=== PATIENT | female | born 1930 | race Caucasian/White ===

== ENCOUNTER 2016-08-20 13:08 | Inpatient (IN) | payer OTHER ==
--- NOTE | 2016-08-20 13:46 | CPEKG ---
Heart Rate: 85 RR Interval: 706 QRSD Interval: 92 QT Interval: 396 QTC Interval: 471 QRS [place]: -24 T Wave [place]: -54 EKG Severity - ABNORMAL ECG - EKG Impression: ATRIAL FIBRILLATION, V-RATE 70-96 EKG Impression: BORDERLINE LEFT AXIS DEVIATION EKG Impression: NONSPECIFIC T ABNORMALITIES, DIFFUSE LEADS Electronically Signed By: Zeeshan Weiss 20-Aug-2016 16:41:10
[2016-08-20] MEDS ORDERED: NS 500 ML IV ONE (13:48)
[2016-08-20] MEDS ORDERED: ASPIRIN 81 MG CHEWABLE TAB PO ONE (13:48)
[2016-08-20 14:11] LABS: % IMMATURE GRANULYOCYTES 0.3 % (0.0-1.1); ABSOLUTE IMMATURE GRANULOCYTES 0.02 10^3/uL (0.00-0.10); ADD DIFF? NO; ADD MORPH? NO; ADD SCAN? NO; ATYPICAL LYMPHOCYTE FLAG 0 (0-99); FRAGMENT RBC FLAG 0 (0-99); HEMATOCRIT 42.2 % (38.0-47.0); LEFT SHIFT FLG 0 (0-99); LIPEMIA HEMOLYSIS FLAG 80 (0-99); MEAN CELL HEMOGLOBIN CONCENTR. 33.2 g/dL (32.4-36.7); MEAN CELL VOLUME 93.6 fL (81.5-99.8); MEAN PLATELET VOLUME 9.1 fL (8.7-11.7); PLATELET CLUMPS FLAG 30 (0-99); PLATELET COUNT 277 10^3/uL (150-400); RED BLOOD CELL COUNT 4.51 10^6/uL (4.18-5.33); RED CELL DISTRIBUTION WIDTH 13.4 % (11.5-15.2)
[2016-08-20 14:23] LABS: ANION GAP 13 mEq/L (8-16); CALCIUM 9.7 mg/dL (8.5-10.4); CARBON DIOXIDE 26 mEq/l (22-31); CHLORIDE 101 mEq/L (97-110); CREATININE 0.8 mg/dL (0.6-1.0); GLOMERULAR FILTRATION RATE > 60; GLUCOSE 89 mg/dL (70-100); POTASSIUM 4.2 mEq/L (3.5-5.2); SODIUM 140 mEq/L (134-144)
[2016-08-20 14:37] LABS: TROPONIN I < 0.012 ng/mL (0-0.034)
--- NOTE | 2016-08-20 14:48 | UCPHY ---
H & P Patient Type: Established Chief Complaint Nursing Narrative: weakness,depression,nausea,dizziness for 1 day Time Seen by Provider: 08/20/16 13:39 HPI/ROS: This patient has generalized weakness over the past 48 hours. She lives in assisted living and has not gotten out of bed for breakfast the last 2 mornings because she feels lightheaded and weak when she stands up. Today her daughter came over with a plan to bring her to lunch and the patient felt too lightheaded to stand without assist and used a walker to ambulate due to this intermittent lightheadedness. This is not like this patient at baseline he usually ambulates without assist. The patient has longstanding depression as well that persists but no significant change in the severity of her depression recently. She does have diminished appetite but that is a chronic problem for her. ROS: No fevers or chills. No other constitutional symptoms except the generalized weakness. HEENT: No headache. No nasal congestion or sore throat. Pulmonary: No dyspnea. No coughing. Cardiovascular: She denies chest pain. She has not noticed heart palpitations. She denies any new leg swelling or calf pain. GI: She has nausea today but no vomiting. Decreased appetite as above that is chronic. Normal bowel movements. : No urinary symptoms. 10 point ROS is otherwise negative. Source: Patient, Family (The patient's daughter is here with her and helps with history) - Personal History Current Tetanus Diphtheria and Acellular Pertussis (TDAP): Yes Tetanus Vaccine Date: unsure - Medical/Surgical History Hx Asthma: No Hx Chronic Respiratory Disease: No Hx Diabetes: No Hx Cardiac Disease: No Hx Renal Disease: No Hx Cirrhosis: No Hx Alcoholism: No Hx HIV/AIDS: No Hx Splenectomy or Spleen Trauma: No Other PMH: hypotension,dementa,afib - Family History Significant Family History: No pertinent family hx - Social History Smoking Status: Never smoked Alcohol Use: None Drug Use: None Additional Social History: Assisted living - Physical Exam Exam: Vital signs are in notable for intermittent pauses with the intermittent bradycardia down to the 30s. Otherwise normal vitals. Initial orthostatics vitals revealed a 18 beats per minute increased when she stands up. General Appearance: Pleasant elderly female Alert, no distress. Eyes: Pupils equal and round no pallor or injection. ENT, Mouth: Mucous membranes moist. Respiratory: There are no retractions, lungs are clear to auscultation. Cardiovascular: Irregularly irregular. No murmurs noted. No JVD. No peripheral edema. Gastrointestinal: Abdomen is soft and nontender, no masses, bowel sounds normal. Neurological: Alert with no focal deficits. Skin: Warm and dry, no rashes. Musculoskeletal: Neck is supple nontender. Extremities are symmetrical, full range of motion. Psychiatric: the patient admits depression. No suicidal ideation. She has a flat affect. DIFFERENTIAL DIAGNOSIS: After history and physical exam differential diagnosis was considered for coronary syndrome, symptomatic bradycardia, rule out metabolic disarray, Constitutional: Initial Vital Signs Temperature (C) 36.9 C 08/20/16 13:34 Heart Rate 86 08/20/16 13:34 Respiratory Rate 14 08/20/16 13:34 Blood Pressure 145/89 H 08/20/16 13:34 O2 Sat (%) 95 08/20/16 13:34 O2 Delivery Mode Room Air Allergies/Adverse Reactions: No Known Allergies Allergy (Verified 08/20/16 13:32) Home Medications: Medication Instructions Recorded Xarelto 01/12/16 Lexapro 08/20/16 Mapap 08/20/16 Medical Decision Making - Diagnostics EKG Interpretation: 12 lead EKG performed at 1:43 p.m. reveals atrial fibrillation at a rate of 85 Intervals: QRS of 92, QTC of 471 [place]: QRS of-24, T of-54 ST segments: T-wave inversion in AVF and in the lateral leads. No previous EKG for comparison. Overall assessment atrial fibrillation, cannot rule out inferolateral ischemia. ED Course/Re-evaluation: IV, monitor, borderline positive orthostatic findings, normal saline bolus, aspirin 324 On the monitor patient had significant pauses and [place] down to the 30s briefly. We placed pacer pads on the patient but did not have to initiate pacing as she quickly resumed a heart rate in the 50s to 70s. I spoke with Dr. Renny Membreno-hospitalist accepts the patient for transfer for symptomatic bradycardia. I spoke with Cristal mid-level practitioner with [facility]. They will consult on the case. Discussion: Pleasant elderly female here with a chronic atrial fibrillation new onset of symptomatic bradycardia of unclear etiology. Rule out cardiac ischemia or other. - Data Points Laboratory Results: Laboratory Results 08/20/16 14:00 08/20/16 14:00 08/20/16 08/20/16 14:00 14:00 WBC 7.89 10^3/uL 10^3/uL (3.80-9.50) RBC 4.51 10^6/uL 10^6/uL (4.18-5.33) Hgb 14.0 g/dL g/dL (12.6-16.3) Hct 42.2 % % (38.0-47.0) MCV 93.6 fL fL (81.5-99.8) MCH 31.0 pg pg (27.9-34.1) MCHC 33.2 g/dL g/dL (32.4-36.7) RDW 13.4 % % (11.5-15.2) Plt Count 277 10^3/uL 10^3/uL (150-400) MPV 9.1 fL fL (8.7-11.7) Neut % (Auto) 69.8 % % (39.3-74.2) Lymph % (Auto) 20.2 % % (15.0-45.0) [place] % (Auto) 7.1 % % (4.5-13.0) Eos % (Auto) 1.5 % % (0.6-7.6) Baso % (Auto) 1.1 % % (0.3-1.7) Nucleat RBC Rel Count 0.0 % % (0.0-0.2) Absolute Neuts (auto) 5.51 10^3/uL 10^3/uL (1.70-6.50) Absolute Lymphs (auto) 1.59 10^3/uL 10^3/uL (1.00-3.00) Absolute Monos (auto) 0.56 10^3/uL 10^3/uL (0.30-0.80) Absolute Eos (auto) 0.12 10^3/uL 10^3/uL (0.03-0.40) Absolute Basos (auto) 0.09 10^3/uL 10^3/uL (0.02-0.10) Absolute Nucleated RBC 0.00 10^3/uL 10^3/uL (0-0.01) Immature Gran % 0.3 % % (0.0-1.1) Immature Gran # 0.02 10^3/uL 10^3/uL (0.00-0.10) Sodium 140 mEq/L mEq/L (134-144) Potassium 4.2 mEq/L mEq/L (3.5-5.2) Chloride 101 mEq/L mEq/L (97-110) Carbon Dioxide 26 mEq/l mEq/l (22-31) Anion Gap 13 mEq/L mEq/L (8-16) BUN 16 mg/dL mg/dL (7-23) Creatinine 0.8 mg/dL mg/dL (0.6-1.0) Estimated GFR > 60 Glucose 89 mg/dL mg/dL (70-100) Calcium 9.7 mg/dL mg/dL (8.5-10.4) Troponin I < 0.012 ng/mL ng/mL (0-0.034) TSH Pending Medications Given: Discontinued Medications Aspirin (Aspirin) 324 mg PO EDNOW ONE Stop: 08/20/16 13:49 Last Admin: 08/20/16 14:31 Dose: 324 mg Sodium Chloride (Ns) 500 mls @ 0 mls/hr IV ONCE ONE PRN Reason: As Directed Stop: 08/20/16 13:49 Last Admin: 08/20/16 13:55 Dose: 500 mls Departure - Departure Disposition: Home, Routine, Self-Care Clinical Impression: Symptomatic bradycardia Atrial fibrillation Qualifiers: Atrial fibrillation type: chronic Qualified Code(s): I48.2 - Chronic atrial fibrillation Condition: Fair Referrals: PCP Not In,Dictionary [Medical Doctor] - As per Instructions - PQRS PQRS Measurement: 134: Depression screening and followup, PRIME MD-PHQ2 (12 years and older) Over the last 2 weeks, how often have you been bothered by any of the following problems? 1. Feeling down, depressed, or hopeless? 2. Little interest or pleasure in doing things? Patient answered yes to at least 1, referred to PCP for further evaluation. 130: Documentation of medications. Reviewed all patient medications, doses, route and frequency. 226: Do you smoke? [No.] 47: 65 and older: Advanced care planning. Patient designates surrogate decision maker as her daughter 51: 18 years old and older with diagnosis of COPD, spirometry performance. NA 52: 18 years old and older with COPD and symptoms of COPD or FEV1<60% predicted prescribed a B Agonist. NA
[2016-08-20 14:54] LABS: COLOR YELLOW; LEUKOCYTE ESTERASE,URINE NEGATIVE (NEGATIVE); NITRITE,URINE NEGATIVE (NEGATIVE); PH,URINE 6.5 (5.0-7.5)
--- NOTE | 2016-08-20 16:02 | PDGENHP ---
History and Physical History and Physical: HISTORY AND PHYSICAL CC: Nausea weakness lightheadedness HISTORY: This patient presents today to the urgent care in [place] complaining of nausea, lightheadedness and weakness.Patient does have dementia and is only able to give me very limited information. I am getting most of my history from her daughter and ferritin Dr. Weiss who saw her at urgent care Sounds like she spent most of the last 2 days in bed and has taken in very little orally.She has a house call who visits her and found her to be "not doing well and "today and called the patient's daughter who brought her to Urgent Care. The patient does admit that she has had poor appetite recently but she can't tell for how long. She denies any nausea, abdominal pain, odynophagia, vomiting, change in bowel function, fever symptoms, back pain. She has no urinary symptoms no shortness of breath. Daughter mentions that she notices the patient has been burping a lot more recently than usual. The daughter last saw the patient 3 days ago doing well at her assisted living apartment. Also the daughter mentions that the patient just started on Lexapro 10 days ago, and that the patient had a similar reaction but milder after being given a prescription for Celexa in December of 2015. at that time the patient improved after IV fluids. There is no significant history of digestive or gastrointestinal illness otherwise and no abdominal surgeries. ROS: A comprehensive 10 system review revealed no other significant findings but is felt to be very limited by the patient's dementia PAST MEDICAL HISTORY: Depression and anxiety Atrial fibrillation on Xarelto side effects with Celexa, but no medicine allergies per se Intention tremor FAMILY MEDICAL HISTORY: There are no significant medical illnesses in the family relevant to the patient 's current story Her father apparently had a severe intention tremor baking him unable to feed himself eventually SOCIAL HISTORY: she is single, but has family here including a daughter The patient's family here describes that the patient has been chronically depressed for many years, but has been more depressed since she moved from [place] to [place] 2 years ago. The patient's family has brought a most form that the patient signed about a year ago, which requests not resuscitate, but full therapies with some limits on artificial feedings. MEDICATIONS: The patients list has not yet been reconciled by our clinical pharmacist in the EMR. as mentioned above it is known that she did start Lexapro 10 mg about 10 days ago. PHYSICAL EXAMINATION: Vital Signs: normal blood pressure and pulse, however in the urgent care she did have heart rates that dropped to the 30s with some long pauses Orthostatic vital signs were recorded at the urgent care today, but only included sitting and standing, nothing recumbent. She did have a pulse that changed from 68-86 from sitting to standing. Whether this represents fluctuations from her AFib or a true change in orthostatic pulses difficult to tell U.[place]. Senator: is reported to me that her registered nurse cardiac telemetry showed atrial fibrillation at the urgent care by Dr. Weiss. She has not yet on registered nurse cardiac telemetry here but does have an irregular pulse at an appropriate heart rate with no sign of bradycardia by my exam Examination: General and Neurologic: alert, responds normally in conversation, however she has fairly severe memory deficit. She knows that she is in [place] and that she is from [place] but she can't tell me the town that she is in or which town she lives in. She thinks it is March does not know the year or the day of the week. She does correctly identify her family members here in the room. She does have significant intention tremor but no resting tremor. There is no rigidity or abnormal reflexes. Otherwise normal speech/language, normal hospice case manager, no focal weakness. She is fairly lean with low sick subcutaneous fat stores and low lean mass, but not really cachectic I did observe the patient as she was being weighed by her nurse here. She was having a great deal of deal of difficulty standing and looked fairly weak and fatigued. She looks better after we had her lie down and stated she felt much better she complained of feeling very dizzy standing up without vertigo symptoms Skin: turgor is poor, otherwise warm, dry, good color, no rash HEENT: normal Neck: no mass or jvd Resps: relaxed Lungs: clear breath sounds Heart: regular, no murmur Abdomen: soft, nondistended, nontender, +BS, no mass Upper Extremities: normal Lower Extremities: no edema, warm No Bleeding or bruising IV site: looks normal LABORATORY DATA: Unremarkable CBC, metabolic panel, and normal troponin 12 lead EKG at urgent care, my personal reading of the tracing: Atrial fibrillation with appropriate rate control without signs of ischemia ASSESSMENT: # SYMPTOMATIC ORTHOSTASIS WITHOUT SYNCOPE # ANOREXIA AND POOR ORAL INTAKE OF FOOD AND FLUIDS FOR PROBABLY 2 DAYS # ATRIAL FIBRILLATION, WITH HEART RATE GENERALLY IN GOOD RANGE NOT ON HEART RATE LOWERING MEDICINES. SHE REPORTEDLY HAD SOME BRADYCARDIA AT THE URGENT CARE BUT HAS NOT HAD THAT YET HERE # CLINICAL EXAM SIGNS OF DEHYDRATION # DEMENTIA AND INTENTION TREMOR WALL MODERATELY SEVERE ARE BOTH AT THEIR BASELINE ACCORDING TO FAMILY # CHRONIC DEPRESSION, RECENTLY STARTED ON LEXAPRO # MOST FORM WITH DO NOT RESUSCITATE REQUEST PLANS: - inpatient admission is this patient does not appear like she will be able to safely leave the hospital within 48 hours -IV hydration -Check symptoms and orthostatic vital signs after hydration -Will not give her the Lexapro now and this can be reviewed with her primary care physician as she returns particularly in light of a similar reaction after Celexa -Follow heart rate closely on registered nurse cardiac telemetry as some bradycardia was reported at urgent care -If she does not improve and regain her appetite we may need to consider some gastroenterologic workup. I will get some liver enzymes at least start with now I have reviewed the patient's case in detail with Dr. Zeeshan Weiss I have reviewed the patient's past medical records as part of this assessment, including records from previous urgent care visit
[2016-08-20] MEDS ORDERED: ONDANSETRON 4 MG/2 ML VIAL IVP PRN (17:23)
[2016-08-20] MEDS: NS 1,000 ML IV SCH (18:01)
[2016-08-21] MEDS: NS 1,000 ML IV SCH (00:39)
[2016-08-21 05:56] LABS: % IMMATURE GRANULYOCYTES 0.2 % (0.0-1.1); ABSOLUTE IMMATURE GRANULOCYTES 0.01 10^3/uL (0.00-0.10); ADD DIFF? NO; ADD MORPH? NO; ADD SCAN? NO; ATYPICAL LYMPHOCYTE FLAG 0 (0-99); FRAGMENT RBC FLAG 0 (0-99); HEMATOCRIT 38.7 % (38.0-47.0); HEMOGLOBIN 12.7 g/dL (12.6-16.3); LEFT SHIFT FLG 0 (0-99); LIPEMIA HEMOLYSIS FLAG 80 (0-99); MEAN CELL HEMOGLOBIN 31.4 pg (27.9-34.1); MEAN CELL HEMOGLOBIN CONCENTR. 32.8 g/dL (32.4-36.7); MEAN CELL VOLUME 95.6 fL (81.5-99.8); MEAN PLATELET VOLUME 9.6 fL (8.7-11.7); PLATELET CLUMPS FLAG 0 (0-99); PLATELET COUNT 236 10^3/uL (150-400); RED BLOOD CELL COUNT 4.05 10^6/uL (4.18-5.33); RED CELL DISTRIBUTION WIDTH 13.4 % (11.5-15.2)
[2016-08-21 06:44] LABS: ALANINE AMINOTRANSFERASE 23 IU/L (9-52); ALBUMIN 3.5 g/dL (3.5-5.0); ALKALINE PHOSPHATASE 43 IU/L (38-126); ANION GAP 10 mEq/L (8-16); ASPARTATE AMINOTRANSFERASE 24 IU/L (14-46); BILIRUBIN,TOTAL 1.3 mg/dL (0.1-1.4); CALCIUM 8.7 mg/dL (8.5-10.4); CARBON DIOXIDE 22 mEq/l (22-31); CHLORIDE 110 mEq/L (97-110); CREATININE 0.7 mg/dL (0.6-1.0); GLOMERULAR FILTRATION RATE > 60; GLUCOSE 72 mg/dL (70-100); POTASSIUM 4.1 mEq/L (3.5-5.2); SODIUM 142 mEq/L (134-144); TOTAL PROTEIN 6.2 g/dL (6.3-8.2)
[2016-08-21] MEDS: ACETAMINOPHEN 325 MG TAB PO PRN (08:39)
[2016-08-21] MEDS: OMEGA-3 FATTY ACIDS 1,000 MG CAP PO SCH (08:39)
[2016-08-21] MEDS: MULTIVITAMINS 1 EACH TAB PO SCH (08:39)
[2016-08-21] MEDS: RIVAROXABAN 20 MG TAB PO SCH (08:43)
--- NOTE | 2016-08-21 11:49 | HOSPPROG ---
Hospitalist Progress Note Assessment/Plan: Orthostasis / volume depletion - resolved with IVF's. Poor appetite likely related to depression. A fib with bradycardia - 2.5 sec pauses on telemetry and H/O prior syncope. May be a candidate for a pacemaker, but sounds like she doesn't want any interventions. -Cards to consult, appreciate assistance -Echo ordered for today Depression - she is profoundly depressed. Will ask mill helper to visit with pt. Her Lexapro is held due to concern for side effects, which she also had with Celexa. Could consider low dose SNRI. DNR Dispo - cont inpt Subjective: PT is very depressed, unhappy about having to leave her home in [place]. Has no friends here, no protestant connection. Denies CP or SOB. She is eating and drinking, having a smoothie. Objective: Vital Signs Temp Pulse Resp BP Pulse Ox 36.6 C 83 20 132/74 H 94 08/21/16 07:34 08/21/16 07:34 08/21/16 07:34 08/21/16 07:34 08/21/16 07:34 Laboratory Results 08/21/16 04:40 08/21/16 04:40 08/20/16 08/21/16 08/22/16 05:59 05:59 05:59 Intake Total 2620 120 Output Total 900 420 Balance 1720 -300 - Physical Exam Constitutional: no apparent distress Eyes: PERRL Ears, Nose, Mouth, Throat: moist mucous membranes Cardiovascular: regular rate and rhythym Respiratory: no respiratory distress, clear to auscultation Gastrointestinal: normoactive bowel sounds, soft, non-tender abdomen Skin: warm Musculoskeletal: full muscle strength Neurologic: AAOx3 Psychiatric: depressed, flat affect ICD10 Worksheet Patient Problems: Problems Problem Status Onset Atrial fibrillation Acute Symptomatic bradycardia Acute
--- NOTE | 2016-08-21 15:28 | GCON ---
[f rep st] CONSULTATION CARDIOLOGY CONSULT We were asked by Dr. Nancy Morin of [facility] to evaluate the patient for her dizziness and bradycardia/pauses. HISTORY OF PRESENT ILLNESS: The patient is an 86-year-old female with a past medical history of depression and likely permanent AFib and possible mild dementia mentioned on her chart, who is admitted after being seen in the urgent care yesterday. She was brought in by her daughter after her house-call doctor was visiting with her and found her to be not doing well. Specifically, she had been noting severe weakness to the point that she had not gotten out of bed in 2 days. She also was noting nausea and dizziness. On telemetry in the urgent care, she was noted to be bradycardic with possible pauses, but no strips are available for our review from that portion of her medical evaluation. She denies any chest pain, PND, orthopnea, fever, chills, or abdominal pain. Her daughter mentions that she is quite dyspneic on exertion. She had an episode of syncope approximately 1 year ago. She was getting out of her daughter's car and proceeded to have syncope, where she had loss of consciousness for several seconds. She was taken to [facility] and was noted to have a pelvic fracture. Additionally, in the summer they report that she had an episode of what was called dehydration. This was treated with IV fluids, which perked her up pretty immediately. PAST MEDICAL HISTORY: 1. Depression and anxiety. 2. Atrial fibrillation, on Xarelto. 3. Intention tremor. FAMILY HISTORY: No significant family history noted. Parents are . SOCIAL HISTORY: She resides at the [facility] in [place]. She was previously in [facility] but moved here in 2014. No significant alcohol noted. No past history of smoking. MEDICATIONS: Please see home med list. ALLERGIES: No known drug allergies. REVIEW OF SYSTEMS: As per HPI. A complete 10-point review of systems was obtained and is negative except for what is dictated in the HPI. PHYSICAL EXAM: VITAL SIGNS: BP 132/71, heart rate of 88, respirations 20, O2 saturation 94% on room air. GENERAL: She is a very pleasant elderly female in no apparent distress. She is wearing sunglasses. HEART: Irregularly irregular with a 2 to 3 out of 6 systolic ejection murmur. Neck with JVD present. LUNGS: Clear to auscultation bilaterally. ABDOMEN: Soft, nontender , nondistended. : No Adames present. SKIN: Warm and dry without erythema or edema. LABORATORY DATA: CBC with WBC 6.12, hemoglobin 12.7, hematocrit 38.7, platelet count of 236. BMP with sodium 142, potassium 4.1, chloride 110, CO2 22, BUN 12 , creatinine 0.7, glucose 72. Telemetry, personally reviewed, shows pauses between 2 to 2.8 seconds. The 2.8 second pause occurred at 8:58 this a.m. 12-lead ECG, personally interpreted, demonstrates atrial fibrillation with leftward axis and diffuse ST-T wave abnormalities. IMPRESSION AND PLAN: The patient is an 86-year-old female admitted with dizziness and weakness. 1. Dizziness. She describes lightheadedness as well as somewhat vertiginous symptoms. This has resolved since her admission. 2. Pauses. She has up to a 2.8 second pause on telemetry. She describes a fall due to syncope 1 year ago. We will request records from [facility]. I will have Dr. Gonzalez of electrophysiology visit with patient to discuss whether permanent pacemaking is indicated due to her symptoms as well as history of syncope. 3. Weakness, likely multifactorial given untreated depression and poor p.o. intake. 4. Syncope. As above, we will be requesting records from [facility] from syncopal episode 1 year ago. /[id number]/MODL MTDD
--- NOTE | 2016-08-21 15:43 | ECHO ---
[id number] + + [address] : : [place] [address] : : [phone] + Adult Echocardiographic Report + -----+ :Name: GURPREET RUSSO VStudy Date: 08/21/2016 01:14 PM : : Hospital Admission Number: [id number] Location : 218: :: 1930 Gender: Female Height: 61 in : :Age: 86 yrs Race: WH Weight: 121 lb : :Reason For Study: SOB/dizziness : : BSA: 1.5 meters2 : + -----+ MMode/2D Measurements \T\ Calculations IVSd: 0.98 cm LVIDd: 4.2 cm FS: 34.2 % MV Diam: 3.8 cm LVPWd: 0.89 cm LVIDs: 2.8 cm EDV(Teich): 79.3 ml ESV(Teich): 28.9 ml EF(Teich): 63.6 % Ao root diam: LVOT diam: 1.8 cmLVLd ap4: 5.8 cm SV(MOD-sp4): 3.3 cm LVOT area: EDV(MOD-sp4): 24.0 ml LA dimension: 2.4 cm2 35.0 ml 5.2 cm LVLs ap4: 5.1 cm ESV(MOD-sp4): 11.0 ml EF(MOD-sp4): 68.6 % Normal Measurement Values: + + :LVIDd (3.5-5.7cm) IVSd (0.6-1.1cm) LVPWd (0.6-1.1cm) Aortic Root (2.0-3.7cm)Left Atrium (1.5-4.0cm): :LV Vol(d) (76-115ml) LV Vol(s) (29-48ml) Ejec Fraction (50-65%)PV Pankaj (0.6- 1.2m/s) TV Pankaj (0.4-1.0m/s) : :MV E Pankaj (0.8-1.0m/s)MV A Pankaj (0.3-1.0m/s)LVOT Pankaj (0.7-1.2m/s) Asc Ao Pankaj ( 0.9-1.8m/s) : + + Doppler Measurements \T\ Calculations MV E max pankaj: MV V2 mean: Ao mean PG: LV V1 max: 95.3 cm/sec 51.8 cm/sec 2.3 mmHg 65.2 cm/sec MV A max pankaj: MV mean P.3 mmHgAo V2 mean: LV V1 max P.2 cm/sec MV V2 VTI: 18.4 cm 68.7 cm/sec 1.7 mmHg MV E/A: 4.1 MV area (1 diam): Ao V2 VTI: 19.6 cm LV V1 mean P.5 cm2 BRIEN(I,D): 1.6 cm2 0.85 mmHg LV V1 mean: MVA(VTI): 1.7 cm2 41.8 cm/sec MV Flow area(1diam): LV V1 VTI: 13.1 cm 11.5 cm2 MR max pankaj: MR(RF 1 diam): SV(MV 1 diam): TR max pankaj: 512.9 cm/sec 18.1 % 211.2 ml 244.3 cm/sec MR max PG: SI(MV 1 diam): TR max P.2 mmHg 138.4 ml/m2 23.9 mmHg SV(LVOT): 31.8 ml RAP systole: 20.0 mmHg RVSP(TR): 43.9 mmHg RF(MV,Ao)(1 diam): 0.21 RF(MV,LVOT) (1diam): 0.85 Left Ventricle The left ventricle is normal in size. There is normal left ventricular wall thickness. Left ventricular systolic function is normal. Ejection Fraction = 65-70%. No regional wall motion abnormalities noted. Right Ventricle The right ventricle is normal in size and function. Atria The left atrium is severely dilated. The right atrium is severely dilated. A prominent eustachian valve is noted. The interatrial septum is intact with no evidence for an atrial septal defect. Mitral Valve There is mild mitral annular calcification. There is no evidence of mitral valve prolapse. There is no mitral valve stenosis. There is moderate mitral regurgitation. Tricuspid Valve Normal tricuspid valve. Right ventricular systolic pressure is 43mmHg. There is Doppler evidence for mild pulmonary hypertension. There is severe tricuspid regurgitation. Aortic Valve The aortic valve is trileaflet. The aortic valve opens well. Mild AV calcification. There is no aortic stenosis. There is no aortic insufficiency. Pulmonic Valve The pulmonic valve is normal in structure and function. Trace pulmonic valvular regurgitation. Great Vessels The aortic root is normal size. Pericardium/Pleural Trivial anterior pericardial effusion. Conclusion A complete two-dimensional transthoracic echocardiogram was performed (2D, M-mode, Doppler and color flow Doppler). Left ventricular systolic function is normal. Ejection Fraction = 65-70%. The left atrium is severely dilated. The right atrium is severely dilated. Mild AV calcification. There is mild mitral annular calcification. There is moderate mitral regurgitation. There is severe tricuspid regurgitation. There is Doppler evidence for mild pulmonary hypertension. Right ventricular systolic pressure is 43mmHg. Trace pulmonic valvular regurgitation. IVC is dilated. Trivial anterior pericardial effusion Final Reading Physician: Mallory Parks signed on 08/21/2016 03:41 PM Ordering Physician: Zenobia Jimenez Performed By: Kristin Alvarez, [facility]
[2016-08-21] MEDS: PHOSPSERIN PO SCH (16:25)
[2016-08-21] MEDS: OMEGA PO SCH (16:25)
[2016-08-21] MEDS: DHA PO SCH (16:25)
[2016-08-21] MEDS: EPA PO SCH (16:25)
[2016-08-21] MEDS ORDERED: ENOXAPARIN 40 MG/0.4 ML SYR SC SCH (21:00)
[2016-08-21] MEDS: ENOXAPARIN 60 MG/0.6 ML SYR SC SCH (21:06)
[2016-08-22] MEDS: OMEGA-3 FATTY ACIDS 1,000 MG CAP PO SCH (10:13)
[2016-08-22] MEDS: ENOXAPARIN 60 MG/0.6 ML SYR SC SCH ×2 (10:13→22:54)
[2016-08-22] MEDS: MULTIVITAMINS 1 EACH TAB PO SCH (10:13)
--- NOTE | 2016-08-22 12:31 | HOSPPROG ---
Hospitalist Progress Note Assessment/Plan: Orthostasis / volume depletion - resolved with IVF's. Poor appetite / intake likely related to depression and contributing to volume depletion. Will reduce rate of IVF's, her intake seems to be improving. A fib with bradycardia - No AV tabitha blockers. 3 sec pauses on telemetry and H/ O prior syncope. Dr. Gonzalez, EP, saw patient and I discussed the case with him. He also spoke to pt's daughter, who wishes to aggressively pursue pacemaker placement. However, pt herself has stated multiple times she does not want this intervention. Dr. Gonzalez does not see a strong indication for a pacemaker as it doesn't seem her pauses correlate with any symptoms. Dr. Gonzalez recommends transfer to [place] for 2nd opinion regarding pacemaker if it is determined that she wishes to pursue this. I attempted to reach her daughter to discuss this option and left a message, but was unable to reach her. Her Xarelto is held and she is anti-coagulated with Lovenox for now in the event a procedure is pursued. Weakness - poor oral intake and depression may be contributing factors. Depression - she is profoundly depressed, but denies suicidality. document specialist will see pt tomorrow. Her Lexapro is held due to concern for side effects, which she also had with Celexa. Could consider low dose SNRI. DNR Dispo - cont inpt Subjective: Pt continues to have flat, depressed affect. Denies CP, SOB or dizziness. Tele reveals 3 second pauses. No pre-syncopal symptoms. Objective: Vital Signs Temp Pulse Resp BP Pulse Ox 36.8 C 71 20 114/76 94 08/22/16 11:15 08/22/16 11:15 08/22/16 11:15 08/22/16 11:15 08/22/16 11:15 Laboratory Results 08/21/16 04:40 08/21/16 04:40 08/21/16 08/22/16 08/23/16 05:59 05:59 05:59 Intake Total 2620 1870 Output Total 900 420 400 Balance 1720 1450 -400 - Physical Exam Constitutional: no apparent distress Eyes: PERRL Ears, Nose, Mouth, Throat: moist mucous membranes Cardiovascular: irregularly irregular Respiratory: no respiratory distress, clear to auscultation Gastrointestinal: normoactive bowel sounds, soft, non-tender abdomen Skin: warm Neurologic: AAOx3 Psychiatric: depressed, flat affect ICD10 Worksheet Patient Problems: Problems Problem Status Onset Atrial fibrillation Acute Symptomatic bradycardia Acute
[2016-08-22] MEDS: DHA PO SCH (15:24)
[2016-08-22] MEDS: PHOSPSERIN PO SCH (15:24)
[2016-08-22] MEDS: EPA PO SCH (15:24)
[2016-08-22] MEDS: OMEGA PO SCH (15:24)
[2016-08-22] MEDS: NS 1,000 ML IV SCH (23:15)
[2016-08-23] MEDS ORDERED: ceFAZolin 2 GM/DEXTROSE 100 ML IV ONE (08:59)
[2016-08-23] MEDS ORDERED: BACITRACIN IRRIGATION/NS 50,000 UNITS/1,000 ML BTL IRR ONE (08:59)
[2016-08-23] MEDS ORDERED: diphenhydrAMINE 25 MG CAP PO ONE (08:59)
[2016-08-23] MEDS ORDERED: DIAZEPAM 5 MG TAB PO ONE (08:59)
[2016-08-23] MEDS ORDERED: NS 1,000 ML IV ONE (08:59)
--- NOTE | 2016-08-23 09:19 | CPEKG ---
Heart Rate: 73 RR Interval: 822 QRSD Interval: 78 QT Interval: 436 QTC Interval: 481 QRS [place]: -4 T Wave [place]: -46 EKG Severity - ABNORMAL ECG - EKG Impression: ATRIAL FIBRILLATION, V-RATE 64-88 EKG Impression: NONSPECIFIC T ABNORMALITIES, INFERIO-LATERAL LEADS Electronically Signed By: Jan Lepe 23-Aug-2016 12:28:35
[2016-08-23] MEDS ORDERED: ceFAZolin 2 GM in D5W 100 ML IV ONE (09:30)
[2016-08-23 10:56] LABS: APTT 32.7 SEC (23.0-38.0); INR 1.11 (0.83-1.16); PROTIME(PATIENT) 14.2 SEC (12.0-15.0)
[2016-08-23] MEDS ORDERED: BUPIVACAINE 0.5% 30 ML SDV ONE (13:40)
[2016-08-23] MEDS ORDERED: LIDO/EPI 1% **for epidural** 30 ML SDV ONE (13:40)
[2016-08-23] MEDS ORDERED: fentaNYL 100 MCG/2 ML INJ ONE ×2 (13:40→14:14)
[2016-08-23] MEDS ORDERED: MIDAZOLAM 2 MG/2 ML VIAL ONE (13:40)
[2016-08-23] MEDS ORDERED: LIDOCAINE 1% 30 ML SDV ONE (13:40)
[2016-08-23] MEDS ORDERED: PROPOFOL 200 MG/20 ML VIAL ONE ×2 (14:14→14:26)
[2016-08-23] MEDS: MULTIVITAMINS 1 EACH TAB PO SCH (14:44)
[2016-08-23] MEDS: ENOXAPARIN 60 MG/0.6 ML SYR SC SCH (14:44)
[2016-08-23] MEDS: OMEGA-3 FATTY ACIDS 1,000 MG CAP PO SCH (14:45)
--- NOTE | 2016-08-23 16:01 | HOSPPROG ---
Hospitalist Progress Note Assessment/Plan: * 5 second pause - now with clear indication for PCM - d/w Dr. Gonzalez * Afib with bradycardia -holding Xarelto for PCM * Depression -lexapro * Dementia - suspect baseline Subjective: no complaints. Objective: Vital Signs Temp Pulse Resp BP Pulse Ox 36.6 C 73 20 139/84 H 91 L 08/23/16 11:12 08/23/16 11:12 08/23/16 11:12 08/23/16 11:12 08/23/16 11:12 Laboratory Results 08/21/16 04:40 08/21/16 04:40 08/22/16 08/23/16 08/24/16 05:59 05:59 05:59 Intake Total 1870 2150 Output Total 420 850 300 Balance 1450 1300 -300 PT 14.2 SEC (12.0-15.0) 08/23/16 10:35 INR 1.11 (0.83-1.16) 08/23/16 10:35 ECHO: EF 65%, right/left atrial dilation - Physical Exam Constitutional: no apparent distress, appears nourished, not in pain Cardiovascular: regular rate and rhythym, no murmur, rub, or gallop Respiratory: no respiratory distress, no rales or rhonchi, clear to auscultation Gastrointestinal: normoactive bowel sounds, soft, non-tender abdomen, no palpable masses Skin: no rashes or abrasions, no fluctuance, no induration Psychiatric: interacting appropriately, not anxious, not encephalopathic, poor insight, poor judgement, poor memory, No depressed, No flat affect, No agitated ICD10 Worksheet Patient Problems: Problems Problem Status Onset Atrial fibrillation Acute Symptomatic bradycardia Acute
[2016-08-23] MEDS: PHOSPSERIN PO SCH (18:32)
[2016-08-23] MEDS: EPA PO SCH (18:32)
[2016-08-23] MEDS: DHA PO SCH (18:32)
[2016-08-23] MEDS: OMEGA PO SCH (18:32)
[2016-08-23] MEDS: ACETAMINOPHEN 325 MG TAB PO PRN (21:48)
[2016-08-24 05:32] LABS: % IMMATURE GRANULYOCYTES 0.3 % (0.0-1.1); ABSOLUTE IMMATURE GRANULOCYTES 0.02 10^3/uL (0.00-0.10); ADD DIFF? NO; ADD MORPH? NO; ADD SCAN? NO; ATYPICAL LYMPHOCYTE FLAG 10 (0-99); FRAGMENT RBC FLAG 0 (0-99); HEMATOCRIT 37.6 % (38.0-47.0); HEMOGLOBIN 12.5 g/dL (12.6-16.3); LEFT SHIFT FLG 0 (0-99); LIPEMIA HEMOLYSIS FLAG 80 (0-99); MEAN CELL HEMOGLOBIN 31.6 pg (27.9-34.1); MEAN CELL HEMOGLOBIN CONCENTR. 33.2 g/dL (32.4-36.7); MEAN CELL VOLUME 95.2 fL (81.5-99.8); MEAN PLATELET VOLUME 9.5 fL (8.7-11.7); PLATELET CLUMPS FLAG 10 (0-99); PLATELET COUNT 217 10^3/uL (150-400); RED BLOOD CELL COUNT 3.95 10^6/uL (4.18-5.33); RED CELL DISTRIBUTION WIDTH 13.4 % (11.5-15.2)
[2016-08-24 05:56] LABS: ANION GAP 8 mEq/L (8-16); CARBON DIOXIDE 25 mEq/l (22-31); CHLORIDE 108 mEq/L (97-110); CREATININE 0.6 mg/dL (0.6-1.0); GLOMERULAR FILTRATION RATE > 60; GLUCOSE 79 mg/dL (70-100); POTASSIUM 4.1 mEq/L (3.5-5.2); SODIUM 141 mEq/L (134-144)
--- NOTE | 2016-08-24 08:45 | CPEKG ---
Heart Rate: 75 RR Interval: 800 QRSD Interval: 78 QT Interval: 436 QTC Interval: 487 QRS [place]: 20 T Wave [place]: -69 EKG Severity - ABNORMAL ECG - EKG Impression: AFIB/FLUT AND V-PACED COMPLEXES EKG Impression: NONSPECIFIC T ABNORMALITIES, DIFFUSE LEADS EKG Impression: BORDERLINE PROLONGED QT INTERVAL Electronically Signed By: Jan Lepe 24-Aug-2016 10:03:42
[2016-08-24] MEDS ORDERED: ESCITALOPRAM OXALATE 10 MG TAB PO SCH (09:00)
[2016-08-24] MEDS: MULTIVITAMINS 1 EACH TAB PO SCH (09:13)
[2016-08-24] MEDS: OMEGA-3 FATTY ACIDS 1,000 MG CAP PO SCH (09:13)
[2016-08-24] MEDS: RIVAROXABAN 20 MG TAB PO SCH (09:13)
[2016-08-24] MEDS: ACETAMINOPHEN 325 MG TAB PO PRN (10:28)
--- NOTE | 2016-08-24 10:35 | PDIAF ---
- Diagnosis Diagnosis: s/p pacemaker Code Status: Do Not Resuscitate - Medication Management Discharge Medications: Medications to Continue on Transfer Acetaminophen [Tylenol ES 500 mg (*)] 500 mg PO BID 08/20/16 [Last Taken 08:00] Acetaminophen [Tylenol ES 500 mg (*)] 500 mg PO Q6 PRN 08/20/16 [Last Taken Unknown] Escitalopram Oxalate [Lexapro 10 MG] 10 mg PO DAILY 08/20/16 [Last Taken ] Multivitamins [Multivitamin (*)] 1 each PO DAILY 08/20/16 [Last Taken 08/20/16] [place]-3 Fatty Acids [Fish Oil 1000 mg (*)] 1,000 mg PO DAILY 08/20/16 [Last Taken 08/20/16] Phospserin/[place]-3/Dha/Epa [Vayacog Capsules] 1 each PO DAILY@18 08/20/16 [Last Taken 08/19/16] Rivaroxaban [Xarelto] 20 mg PO DAILY 08/20/16 [Last Taken 08/19/16] Discharge Medications: Refer to the Discharge Home Medication list for PRN reason. - Orders Services needed: Home Care, Registered Nurse, Physical Therapy, Occupational Therapy Home Care Face to Face: I certify that this patient was under my care and that I had the required qudi-io-qxck encounter meeting the encounter requirements on the discharge day. My findings support the fact that the patient is homebound as defined in CMS Chapter 7 Medicare Benefits Manual 30.1.1, The condition of the patient is such that there exists a normal inability to leave home and consequently, leaving home would require a considerable and taxing effort. Diet Recommendation: no restrictions on diet Activity/Weight Bearing Restrictions: No lifting arm above head or behind back. No heavy lifting. - Follow Up Care Current Providers and Referrals: PCP Not In,Dictionary [Medical Doctor] - As per Instructions Yuniel Gonzalez MD [Medical Doctor] -
--- NOTE | 2016-08-24 10:37 | EPPROC ---
Electrophysiology Procedure Note: PROCEDURE PERFORMED: * Implantation of an V Pacemaker * Fluoroscopy INDICATION: This is a 86 yr old with weakness and fatigue who was noted to have 5 sec pause on monitor with significant bradycardia at other times. Pt has chronic AF PROCEDURE NOTE: Patient presented to the cardiac catherization laboratory in a fasting, post absorptive state. Cardiac laborer vegetable farm nurse administered moderate sedation. The left infraclavicular area was prepped and draped in the usual sterile fashion. Lidocaine plus bupivacaine was used for local anesthesia. Using a combination of blunt and sharp dissection and electrocautery, the dissection was carried down to the prepectoral fascia. . All bleeding was controlled with electrocautery. Using usual technique, left cephalic vein was accessed and guidewire was placed into the venous system was confirmed by low-pressure blood return and also by visualizing the guide wire advancing into the inferior vena cava. A purse string suture was applied around the guide wire. One #7 Brazilian sheath was advanced under fluoroscopic guidance over the guidewire. An active fixation ventricular lead was advanced into the right ventricular apex and screwed in place. The peel away sheath was removed. Pacing thresholds, sensing parameters and lead impedances were measured. There was no diaphragmatic stimulation at maximum output. The lead was sutured to the prepectoral fascia with 3 nonabsorbable sutures. The pocket was again inspected for any bleeding. The lead was attached to the pacemaker securely. Pocket was made and flushed using antibiotic solution. The pacemaker was inserted into the pocket and secured in place with a nonabsorbable suture. Fluoroscopy was performed in CA and [place] planes to verify right-sided placement of the lead. Also fluoroscopy of the pacemaker pocket was performed. The pacemaker pocket was closed in 3 layers with absorbable monocryl sutures. Appropriate dressing was applied. The patient left the cardiac catheterization laboratory in stable condition. Serial Numbers: * Device: [employer] ASSURITY SN [id number] * Ventricular Lead: [employer] [place] Tendril 2088TC SN [id number] Stimulation Thresholds & Impedance Measurements: * Ventricular Lead 3.1mV, 0.4@0.5ms, 398Ohms [place] Pacing Parameters * Pacing mode: VVI * Lower rate: 60 * Upper sensor rate:130 Patient Problems: Problems Problem Status Onset Atrial fibrillation Acute Symptomatic bradycardia Acute
--- NOTE | 2016-08-24 10:49 | PDCARPN ---
Cardiology Progress Note Chief Complaint: SSS/AF/weakness Assessment/Plan: Assessment: 86F p/w weakness, inability to get out of bed for 2 days, dizziness. Found to have pauses on monitoring. #. SSS: pt has had previous syncope and worsening weakness/dizziness up to 5 second pauses on telemetry proceeded to PPM implantation 08/23 ok to d/c will need to follow L arm precautions follow up in 1 week for pacer check #. AF: permanent continue Xarelto OK to d/c from cardiology perspective. Plan: 08/24/16 10:46 Subjective: Mild pain at pacer site. Reviewed/Discussed With: hospitalist (Dr. Izaguirre) Objective: Vital Signs (8 Hrs) Temp Pulse Resp BP Pulse Ox 08/24/16 07:21 98.2 F 70 20 133/77 H 92 08/24/16 04:00 97.9 F 66 18 122/77 H 90 L Intake/Output (24 Hrs) 08/23/16 08/24/16 08/25/16 05:59 05:59 05:59 Intake Total 2150 370 Output Total 850 800 500 Balance 1300 -430 -500 Intake: Oral (ml) 950 120 IV Intake (ml) 1200 250 Output: Urine (ml) 450 800 500 Bedside Commode 200 500 Toilet 250 300 500 Urine/Stool Mix (ml) 400 Bedside Commode 400 Other: Weight 54.6 kg 55.4 kg Number of Voids Toilet 1 1 Number of Stools Bedside Commode 1 Toilet 1 1 1 Result Diagrams: 08/24/16 04:55 08/24/16 04:55 Telemetry: AF - Physical Exam Constitutional: no apparent distress Eyes: PERRL Ears, Nose, Mouth, Throat: moist mucous membranes Cardiovascular: irregularly irregular Respiratory: clear to auscultate bilat ICD10 Worksheet Patient Problems: Problems Problem Status Onset Symptomatic bradycardia Acute Atrial fibrillation Acute
[2016-08-24 12:35] VITALS: BP 126/75; PULSE 73; RESP 19; TEMP 97.7; O2SAT 93
--- NOTE | 2016-08-24 18:51 | GDS ---
DISCHARGE DIAGNOSES: 1. Cardiac pause status post pacemaker. 2. Atrial fibrillation with bradycardia. 3. Depression. 4. Dementia. HISTORY: The patient is an 86-year-old female who was found to have bradycardia with up to a [address] Gonzalez placed a pacemaker. This was placed without any complication. DISCHARGE MEDICATIONS: Please see computer record for full detailed list. There were no new medica tions given at the time of hospital discharge. ADDITIONAL DISCHARGE INSTRUCTIONS: 1. Standard pacemaker transmitter instructions and left arm precautions at discharge. 2. Follow up at [facility]. Less than 30 minutes' time was spent arranging this discharge. Patient seen and examined by me on t he day of discharge. /[id number]/MODL
== END 2016-08-24 14:27 | disposition home health service (06) | DRG 244 ==
LOC: CED 13:08 → CEDHOLD 14:38 → F2W 16:05
PROVIDERS: ADMIT Internal Medicine; ATTEND Internal Medicine
PROC: 02HK3JZ Insertion of Pacemaker Lead into Right Ventricle, Percutaneous Approach (ICD-10-PCS; principal; 2016-08-23)
PROC: 0JH604Z Insertion of Pacemaker, Single Chamber into Chest Subcutaneous Tissue and Fascia, Open Approach (ICD-10-PCS; principal; 2016-08-23)
DX: I49.5 Sick sinus syndrome (principal); F32.9 Major depressive disorder, single episode, unspecified; F03.90 Unspecified dementia, unspecified severity, without behavioral disturbance, psychotic disturbance, mood disturbance, and anxiety; R63.0 Anorexia; E86.0 Dehydration; G25.2 Other specified forms of tremor; Z66 Do not resuscitate; Z79.01 Long term (current) use of anticoagulants
CPT/HCPCS: 80048-PO; 81003-PO; 84443-PO; 84484-PO; 85025-PO; 93010-PO; 96360-PO; 97116-GP; 97162-GP; 97164-GP; 97165-GO; 97168-GO; 97530-GO; 97530-GP; 97535-GO; 99215-PO; C1769; C1786; C1898; G0463-PO; G8978-GP-CJ; G8979-GP-CI; G8987-GO-CI; G8987-GO-CJ; G8988-GO-CI; J0690; J1650; J2250; J2704; J3010

== ENCOUNTER 2016-08-26 18:03 | Inpatient (IN) | payer OTHER ==
--- NOTE | 2016-08-26 18:11 | EDPHY ---
H & P Time Seen by Provider: 08/26/16 18:10 HPI/ROS: CHIEF COMPLAINT: Pacemaker site pain. HISTORY OF PRESENT ILLNESS: This is an 86-year-old female with a history of atrial fibrillation s/p pacemaker placement 2 d ago who presents with left anterior chest pain. She is now complaining of pain over the pacemaker placement site. This pain radiates to her left arm and back and is associated with swelling and bruising. The pain is worsened with breathing. Her family also reports that today she has been increasingly lethargic and more confused than usual. She denies vomiting, nausea, headache, myalgia, diarrhea, cough, or other complaints. She is oriented to self. She is anticoagulated on Xarelto. REVIEW OF SYSTEMS: A complete 10-point review of systems was performed and is negative except for those items mentioned in the HPI. Past Medical/Surgical History: Depression, anxiety, dementia, atrial fibrillation. Social History: Nonsmoker. Smoking Status: Never smoked Physical Exam: General Appearance: Alert, staring into space, looks at me when I talk answers most questions appropriately. Eyes: Pupils equal and round, no conjunctival pallor ENT, Mouth: Mucous membranes moist Neck: Normal inspection Respiratory: Lungs are clear to auscultation Cardiovascular: Regular rate and rhythm. Left anterior chest wall: wound is clean, dry, and intact. There is a large amount of surrounding ecchymosis, swelling and tenderness. Erythema to the left breast, but no wound erythema. Gastrointestinal: Abdomen is soft and non-tender Neurological: Alert, follows commands, motor-no focal weakness Skin: Warm and dry Extremities: No tenderness Psychiatric: Flat Constitutional: Initial Vital Signs Temperature (C) 37.3 C 08/26/16 18:10 Heart Rate 85 08/26/16 18:10 Respiratory Rate 18 08/26/16 18:10 Blood Pressure 154/90 H 08/26/16 18:10 O2 Sat (%) 96 08/26/16 18:10 O2 Delivery Mode Room Air Allergies/Adverse Reactions: No Known Allergies Allergy (Verified 08/26/16 18:20) Home Medications: Medication Instructions Recorded Acetaminophen [Tylenol ES 500 mg 500 mg PO BID 08/20/16 (*)] Acetaminophen [Tylenol ES 500 mg 500 mg PO Q6 PRN 08/20/16 (*)] Escitalopram Oxalate [Lexapro 10 10 mg PO DAILY 08/20/16 MG] Multivitamins [Multivitamin (*)] 1 each PO DAILY 08/20/16 [place]-3 Fatty Acids [Fish Oil 1000 1,000 mg PO DAILY 08/20/16 mg (*)] Phospserin/[place]-3/Dha/Epa 1 each PO DAILY 08/20/16 [Vayacog Capsules] Rivaroxaban [Xarelto] 20 mg PO DAILY 08/20/16 Medical Decision Making - Diagnostics Imaging: Chest x-ray reviewed by me reveals cardiomegaly, no acute disease. ED Course/Re-evaluation: This patient presents with a large postoperative hematoma and cellulitis from recent pacemaker placement. Concern for infected hematoma. Altered mental status most likely secondary to infection. She does not meet SIRS criteria. An IV was established and labs ordered. Ancef 1gm IV given. Chest x-ray and EKG obtained. 2003: Consulted with Dr. Yee, hospitalist. He accepts admission. Differential Diagnosis: Altered mental status including but not limited to hypoglycemia, infectious process, electrolyte abnormality, head injury and intoxicants. - Data Points Laboratory Results: Laboratory Results 08/26/16 11:40 08/26/16 19:30 Microbiology Results: MICROBIOLOGY 08/26/16 19:50 Blood Blood Culture - Preliminary 08/26/16 19:30 Blood Blood Culture - Preliminary Medications Given: Discontinued Medications Acetaminophen (Tylenol) 650 mg PO EDNOW ONE Stop: 08/26/16 18:59 Last Admin: 08/26/16 19:20 Dose: Not Given Cefazolin Sodium/Dextrose (Ancef 1 Gm (Premix)) 50 mls @ 200 mls/hr IV EDNOW ONE PRN Reason: Protocol Stop: 08/26/16 19:11 Last Admin: 08/26/16 19:14 Dose: 50 mls Vancomycin/Sodium Chloride (Vancomycin 1 Gm (Premix)) 250 mls @ 250 mls/hr IV Q12H MEL PRN Reason: Protocol Stop: 09/25/16 20:59 Last Admin: 08/27/16 09:43 Dose: 250 mls Sodium Chloride (Ns) 1,000 mls @ 125 mls/hr IV CONT MEL Stop: 08/27/16 04:44 Last Admin: 08/26/16 20:56 Dose: 1,000 mls Departure - Departure Disposition: [facility] Acute Clinical Impression: Hematoma Cellulitis Qualifiers: Site of cellulitis: trunk Site of cellulitis of trunk: chest wall Qualified Code(s): L03.313 - Cellulitis of chest wall Altered mental status Qualifiers: Altered mental status type: unspecified Qualified Code(s): R41.82 - Altered mental status, unspecified Condition: Fair Report Scribed for: Dayan Alcantar Report Scribed by: Mark Anthony French Date of Report: 08/26/16 Time of Report: 18:11 Physician Review and Approval Statement: 08/26/16 18:11 Portions of this note were transcribed by a medical review specialist. I personally performed a history, physical exam, medical decision making, and confirmed accuracy of information the transcribed note.
[2016-08-26 18:56] LABS: % IMMATURE GRANULYOCYTES 0.3 % (0.0-1.1); ABSOLUTE IMMATURE GRANULOCYTES 0.03 10^3/uL (0.00-0.10); ADD DIFF? NO; ADD MORPH? NO; ADD SCAN? NO; ATYPICAL LYMPHOCYTE FLAG 0 (0-99); FRAGMENT RBC FLAG 0 (0-99); HEMATOCRIT 35.4 % (38.0-47.0); HEMOGLOBIN 11.7 g/dL (12.6-16.3); LEFT SHIFT FLG 0 (0-99); LIPEMIA HEMOLYSIS FLAG 80 (0-99); MEAN CELL HEMOGLOBIN 31.5 pg (27.9-34.1); MEAN CELL HEMOGLOBIN CONCENTR. 33.1 g/dL (32.4-36.7); MEAN CELL VOLUME 95.4 fL (81.5-99.8); MEAN PLATELET VOLUME 9.5 fL (8.7-11.7); PLATELET CLUMPS FLAG 0 (0-99); PLATELET COUNT 234 10^3/uL (150-400); RED BLOOD CELL COUNT 3.71 10^6/uL (4.18-5.33); RED CELL DISTRIBUTION WIDTH 13.7 % (11.5-15.2)
[2016-08-26] MEDS ORDERED: ACETAMINOPHEN 325 MG TAB PO ONE (18:58)
--- NOTE | 2016-08-26 19:40 | CPEKG ---
Heart Rate: 73 RR Interval: 822 QRSD Interval: 72 QT Interval: 416 QTC Interval: 459 QRS [place]: 8 T Wave [place]: -29 EKG Severity - ABNORMAL ECG - EKG Impression: ATRIAL FIBRILLATION, V-RATE 66-97 EKG Impression: BORDERLINE T ABNORMALITIES, DIFFUSE LEADS Electronically Signed By: Dayan Alcantar 26-Aug-2016 21:17:23
[2016-08-26 19:50] LABS: ANION GAP 9 mEq/L (8-16); CALCIUM 8.9 mg/dL (8.5-10.4); CARBON DIOXIDE 27 mEq/l (22-31); CHLORIDE 104 mEq/L (97-110); CREATININE 0.6 mg/dL (0.6-1.0); GLOMERULAR FILTRATION RATE > 60; GLUCOSE 106 mg/dL (70-100); SODIUM 140 mEq/L (134-144)
[2016-08-26 20:08] LABS: POTASSIUM 4.1 mEq/L (3.3-5.0)
[2016-08-26 20:27] LABS: COLOR YELLOW; LEUKOCYTE ESTERASE,URINE NEGATIVE (NEGATIVE); NITRITE,URINE NEGATIVE (NEGATIVE)
[2016-08-26] MEDS ORDERED: ONDANSETRON DISINTEGRATING 4 MG TAB PO PRN (20:34)
[2016-08-26] MEDS ORDERED: ONDANSETRON 4 MG/2 ML VIAL IVP PRN (20:34)
[2016-08-26] MEDS ORDERED: NS 1,000 ML IV SCH (20:45)
--- NOTE | 2016-08-26 21:28 | GHP ---
DATE OF ADMISSION: 08/26/2016 HISTORY OF PRESENT ILLNESS: The patient is a pleasant 86-year-old female with a history of atrial f ibrillation. She was recently admitted and had a pacemaker placed for symptomatic bradycardia. She returns today with decreased in mental status and a large pacer pocket hematoma. She was discharge d to assisted living. It sounds like she was discharged on rivaroxaban. She was discharged on the . She returned to her assisted living at today, she was noted to be she is discharged on the she was returned to her assisted living called [facility] in [place]. She may have externally rotated her arm out of the sling while sleeping, but she has been wearing e sling largely as tolerated most of the time. Today, her daughter noted there was some swelling, a nd it got progressively larger over the last few hours. She is also complaining of some pain in her breast. It is very tender to palpation. There is a small blister just inferior to the dressing. It is not clear if there is fever or chills, but the patient is much less conversant and aware than she typically is. REVIEW OF SYSTEMS: A complete 10-point review of systems was conducted and negative except as noted in the HPI. PAST MEDICAL HISTORY: 1. Atrial fibrillation, on Xarelto. 2. Symptomatic bradycardia. 3. Memory loss. 4. DNR. 5. Depression and anxiety. ALLERGIES: No known drug allergies. HOME MEDICATIONS: Celexa, rivaroxaban, Vayacog capsules, Tylenol, multivitamin. SOCIAL HISTORY: [facility] in [place]. DNR. Family at bedside. No tobacco. Rare alcohol. FAMILY HISTORY: Parents . PHYSICAL EXAMINATION: PRESENTING VITALS: Temp 37.3, blood pressure 154/90, pulse 85, breathing 18 times a minute, 96% on room air. GENERAL: No acute distress. HEENT: Sclerae anicteric. Orophary nx clear. Mucous membranes moist. NECK: Supple, without lymphadenopathy or JVD. LUNGS: Clear to auscultation bilaterally. HEART: S1, S2. CHEST: Her left upper chest has probably a 12 x 12 x 3 -4 cm thick hematoma. There is what appears to be significant erythema versus cellulitis over her b reast. She has significant bruising in her axilla, tracking down her medial biceps. Her radial pul se on that side is intact. ABDOMEN: Soft, nontender, nondistended. LOWER EXTREMITIES: Without ed halima. Calves are nontender. SKIN: Without rash. NEUROLOGIC: Exam is nonfocal. DIAGNOSTIC DATA: Chest x-ray interpreted by me shows cardiomegaly and pacemaker. No pneumonia. No pneumothorax. EKG interpreted by me shows AFib at 73, with a normal axis and intervals. There are diffuse flat T's, but otherwise unremarkable. LABORATORY DATA: White count 9.4. Hematocrit 35.4, which is down a bit from her previous admission . INR was not sent. Sodium 140, potassium 4.1, chloride 104, bicarb 27, BUN 16, creatinine 0.6, gl ucose 106. ASSESSMENT AND PLAN: I have discussed the case with Dr. Ibeth Alcantar. This is an 86-year-old female who presents with pacemaker pocket hematoma and encephalopathy. 1. Pacemaker pocket hematoma. I suspect this is a combination of more movement than was advisable, plus resumption of anticoagulation. It is certainly a fairly significant hematoma. We will hold r ivaroxaban. I will wait to discuss this with Cardiology. It seems like a general surgery evaluatio n for possible evacuation may be a meaningful therapeutic intervention. The pacemaker appears to be working, although her EKG does not show it. 2. Encephalopathy. This is likely secondary to her current infection and pacemaker pocket hematoma . 3. Question of cellulitis. I think the patient may have a breast cellulitis. It may simply be irr itation, but I will treat with vancomycin 1 g IV q.12 and follow. 4. Depression. Continue her Lexapro. 5. Pain. Scheduled Tylenol p.r.n. and very low-dose oxycodone of 2.5 q.4 p.r.n. 6. Code. Do not resuscitate. 7. Disposition. Inpatient status. /[id number]/MODL
[2016-08-26] MEDS: ACETAMINOPHEN 500 MG TAB PO SCH (21:46)
[2016-08-26] MEDS: VANCOMYCIN HCL/NORMAL SALINE 250 ML IV SCH (22:29)
--- NOTE | 2016-08-27 04:33 | GCON ---
REFERRING PHYSICIAN: Danny Yee MD REASON FOR CONSULTATION: This is at the request of Dr. Danny Yee for hematoma after recent pac emaker placement. HISTORY OF PRESENT ILLNESS: The patient is a very pleasant 86-year-old woman with a history of hal ntia, who is admitted to the hospital, and had a pacemaker placed for symptomatic bradycardia. She also has a history of atrial fibrillation for which she is on Xarelto. Postoperative hematoma was n oted over the course of the last 8-12 hours. The patient was seen by her daughter at the assisted-l iving facility to which she had been discharged, and a hematoma seemed to develop over the course of the last 6-8 hours. The patient's daughter did note some possible trauma to the arm with external rotation while she was not in the sling, as well as more mobility today while out of a sling. The p atient is complaining about pain in her arm, as well as her left breast, and the patient is complain ing about more pain than she typically has. REVIEW OF SYSTEMS: Significant for her pain and previous syncope, which has now been treated with a pacemaker. PAST MEDICAL HISTORY: Includes atrial fibrillation, mild dementia with memory loss, depression, anx iety, and bradycardia, which has been treated with a pacemaker. ALLERGIES: She has no known drug allergies. MEDICATIONS: Include Celexa, Xarelto, Vayacog, Tylenol, multivitamin. SOCIAL HISTORY: The patient is a DNR. Family is at bedside. Denies any alcohol or tobacco use. FAMILY HISTORY: Not significant. PHYSICAL EXAMINATION: GENERAL APPEARANCE: The patient is alert, oriented, but quiet. She appears in no distress. VITAL SIGNS: Temperature of 37.3, blood pressure 154/90, heart rate of 75-85, resp iratory rate of 18, saturating 95% on room air. HEENT: Sclerae are anicteric. Oropharynx is moist . NECK: She has no JVD. Trachea is midline. LUNGS: Clear bilaterally. HEART: S1 and S2. She does not appear to be in atrial fibrillation at this time. She has a hematoma at the pacemaker site . The incision itself is dressed with Opsite and dry dressing, Steri-Strips underneath. Reveal no signs of disruption of the wound. No breakdown. No desquamation of the skin or ischemia. She does have a blister likely related to Tegaderm, on the lateral aspect of the breast, without signs of co mmunication with the wound itself. No signs of infection or crepitus is noted. Ecchymosis is on th e lateral aspect of the breast, as well as the upper arm, without signs of active bleeding. ABDOMEN : Soft, nontender. EXTREMITIES: Without edema. SKIN: She has no rashes or skin lesions. NEUROL OGIC: Exam is nonfocal. LABORATORY DATA: Show a white blood cell count of 9.4, hemoglobin of 35, which is not significantly decreased from 36 on her discharge date of 08/24. INR was not drawn. Sodium 140, potassium 4.3, c hloride 104, bicarbonate 27, creatinine 16, creatinine 0.6, glucose 106. ASSESSMENT AND PLAN: After discussion with Cardiology and Dr. Yee, I believe that she has a alba akil of the pocket of the pacemaker. Nonoperative treatment may be an option, but given her anticoa gulation, I will recommend holding the anticoagulation at this time, discussing the case with the in terventional gas plumbing inspector in the morning to see whether he would prefer to evacuate the hematoma, if it is worsening, or whether he would like General Surgery to do this. Discussed in detail with the patient's daughter and son-in-law. All questions were addressed. We will revisit with the patient in the morning. /[id number]/MODL
[2016-08-27] MEDS: ACETAMINOPHEN 500 MG TAB PO SCH ×3 (05:28→22:02)
[2016-08-27] MEDS: VANCOMYCIN HCL/NORMAL SALINE 250 ML IV SCH (09:43)
[2016-08-27] MEDS: MULTIVITAMINS 1 EACH TAB PO SCH ×2 (09:58→12:26)
[2016-08-27] MEDS: DHA PO SCH (09:58)
[2016-08-27] MEDS: PHOSPSERIN PO SCH (09:58)
[2016-08-27] MEDS: EPA PO SCH (09:58)
[2016-08-27] MEDS: OMEGA PO SCH (09:58)
[2016-08-27] MEDS: OMEGA-3 FATTY ACIDS 1,000 MG CAP PO SCH (09:58)
[2016-08-27 10:20] LABS: % IMMATURE GRANULYOCYTES 0.4 % (0.0-1.1); ABSOLUTE IMMATURE GRANULOCYTES 0.03 10^3/uL (0.00-0.10); ADD DIFF? NO; ADD MORPH? NO; ADD SCAN? NO; ATYPICAL LYMPHOCYTE FLAG 20 (0-99); FRAGMENT RBC FLAG 0 (0-99); HEMATOCRIT 34.7 % (38.0-47.0); HEMOGLOBIN 11.4 g/dL (12.6-16.3); LEFT SHIFT FLG 0 (0-99); LIPEMIA HEMOLYSIS FLAG 80 (0-99); MEAN CELL HEMOGLOBIN 31.6 pg (27.9-34.1); MEAN CELL HEMOGLOBIN CONCENTR. 32.9 g/dL (32.4-36.7); MEAN CELL VOLUME 96.1 fL (81.5-99.8); MEAN PLATELET VOLUME 9.3 fL (8.7-11.7); PLATELET CLUMPS FLAG 0 (0-99); PLATELET COUNT 229 10^3/uL (150-400); RED BLOOD CELL COUNT 3.61 10^6/uL (4.18-5.33); RED CELL DISTRIBUTION WIDTH 13.7 % (11.5-15.2)
[2016-08-27 11:02] LABS: ANION GAP 10 mEq/L (8-16); CALCIUM 9.1 mg/dL (8.5-10.4); CARBON DIOXIDE 22 mEq/l (22-31); CHLORIDE 109 mEq/L (97-110); CREATININE 0.6 mg/dL (0.6-1.0); GLOMERULAR FILTRATION RATE > 60; GLUCOSE 87 mg/dL (70-100); POTASSIUM 4.3 mEq/L (3.5-5.2); SODIUM 141 mEq/L (134-144)
--- NOTE | 2016-08-27 12:07 | PDCARPN ---
Cardiology Progress Note Assessment/Plan: Assessment: Pacemaker pocket hematoma Plan: Seen patient with Clark Trujillo. Discussed with daughter. -Hematoma is moderate sized -They understand risk of stroke while holding Xarelto - No evidence of wound dehiscence at this time. Would like to wait/watch and manage this conservatively, if worsens will evacuate hematoma -Pain control is adequate per patient and daughter. 08/27/16 12:05 Objective: Vital Signs (8 Hrs) Temp Pulse Resp BP Pulse Ox 08/27/16 11:09 36.8 C 79 17 135/88 H 93 08/27/16 07:22 36.7 C 41 L 16 142/83 H 95 08/27/16 04:48 36.7 C 70 16 120/69 91 L Intake/Output (24 Hrs) 08/26/16 08/27/16 08/28/16 11:59 11:59 11:59 Intake Total 1300 Output Total 1050 Balance 250 Intake: Oral (ml) 80 IV Infused (ml) 1220 Ns 1,000 ml @ 125 mls/hr 670 IV CONT MEL Rx#: [id number] Vancomycin HCl/Normal 250 Saline 250 ml @ 250 mls/ hr IV Q12H MEL Rx#: [id number] Output: Urine (ml) 1050 Bedside Commode 1050 Other: Weight 55.2 kg Intake Quantity npo Sufficient Number of Voids 1 Bedside Commode 1 Result Diagrams: 08/27/16 10:14 08/27/16 10:14 ICD10 Worksheet Patient Problems: Problems Problem Status Onset Symptomatic bradycardia Acute Atrial fibrillation Acute Cellulitis Acute Hematoma Acute Altered mental status Acute
--- NOTE | 2016-08-27 12:13 | GCON ---
CARDIOLOGY CONSULTATION REASON FOR CONSULTATION: Patient with known history of permanent atrial fibrillation with sick sinus syndrome and pauses, recent pacemaker implantation. Patient noted with a large hematoma at the pacemaker insertion site. HISTORY OF PRESENT ILLNESS: The patient is an 86-year-old female with significant past history that includes permanent atrial fibrillation, mild dementia, symptomatic bradycardia with noted pauses up to 2.8 seconds on previous telemetry. She was previously admitted to the hospital August 20 through August 24. The patient, while here, did undergo permanent pacemaker implantation by Dr. Gonzalez on August 23, [employer] single lead, due to ongoing palpitations. After speaking with the patient and her daughter, she had been doing well since discharge. Her daughter had raised some concern that she had inadvertently moved her left arm pacemaker insertion site higher than shoulder height and had been a little bit more rough on it than had been planned for her limited mobility post pacemaker implantation. But overall felt that she had been doing well. The patient has had no further episodes of lightheadedness since hospital discharge. Patient's daughter reports apparently she was reporting some tenderness at the insertion site, but no fevers, chills, diaphoresis or signs of infection. The patient's daughter took the patient to her granddaughter's house for dinner, and at 4:00 p.m. she noticed that her pacemaker insertion site looks like it had swollen in size and became very tender. At that point, she decided to bring the patient back to the hospital for further evaluation. Upon arrival to the emergency department, electrocardiogram was done showing patient continued to be in atrial fibrillation but heart rate at 73 beats per minute. Her initial laboratory studies showed a mild decrease in hemoglobin and hematocrit from hospital discharge (on 08/24 was 12.5 and 37.6, admission to the hospital 11.7 and 35.4) . Patient denies any chest pain or shortness of breath, but significant tenderness. She had been admitted to the telemetry floor by the hospitalist services. They have preemptively started her on antibiotic therapy. The patient does have a normal white blood cell count on admission of 9.43. The patient and her daughter deny any fevers, chills, or night sweats. Denies any chest pain, shortness of breath, lightheadedness, near-syncope, or syncopal events. The hospitalist service has also requested Dr. Garcia of General Surgery to evaluate the patient, please see consultation. PAST MEDICAL HISTORY: 1. Permanent atrial fibrillation, symptomatic bradycardia with noted significant pauses up to 2.8 seconds. 2. Memory loss. 3. Depression and anxiety. PAST SURGICAL HISTORY: Pacemaker implantation done on August [address] [employer] device. FAMILY HISTORY: No significant family history noted, both parents are . SOCIAL HISTORY: The patient resides at the [facility] in [place]. No significant alcohol use, no past history of smoking, no illicit drug use. ALLERGIES: Patient has no known drug allergies. MEDICATIONS: At home include: 1. Xarelto 20 mg p.o. daily. 2. capsules 1 tablet daily. 3. Fish oil 1000 mg p.o. daily. 4. Multivitamin 1 tablet daily. 5. Lexapro 10 mg p.o. daily. 6. Acetaminophen extra-strength 500 mg p.o. b.i.d. and q.6 hours p.r.n. REVIEW OF SYSTEMS: A 10-point review of systems done on this patient and all negative except as mentioned in HPI. PHYSICAL EXAMINATION: GENERAL APPEARANCE: Medium built female. She is alert and orientated to person, place, time, situation. VITAL SIGNS: Current vital signs are blood pressure 142/83, heart rate 70, atrial fibrillation on the monitor, respirations 18, saturating 95% on room air. Temperature of 36.7 degree Celsius. HEENT: Head is normocephalic. Lips and tongue are pink and moist with no signs of cyanosis. Conjunctivae pink. NECK: Trachea is midline, +2 carotid pulses bilateral, no auscultated bruits, no jugular vein distention. RESPIRATORY: Lungs clear to auscultation. No rhonchi , rales or wheezes. No accessory muscle use, no intercostal muscle retraction noted. CARDIAC: Regular rate, irregular rhythm, S1, S2. 2/6 systolic murmur noted along the left sternal border. ABDOMEN: Soft, nontender, bowel sounds x4 quadrants. No organomegaly, no palpable masses. SKIN: [place], warm and dry. No clubbing, cyanosis, or peripheral edema noted. Pacemaker insertion site, left anterior chest clavicle, palm-sized hematoma mass, tender to touch. Incision intact with Steri-Strips. No redness, swelling or drainage noted. Likely large hematoma. VASCULAR: +2 carotids bilateral, +2 radials bilateral, +1 posterior tibial pulses bilateral. LABORATORY STUDIES: This morning showed WBC of 7.58, hemoglobin 11.4, hematocrit of 34.7, platelet count of 229. On admission, sodium was 140, potassium 4.1, chloride 104, CO2 of 27, BUN 16, creatinine 0.6, glucose 106, calcium 8.9. UA done on admission was negative. Chest x-ray on admission showed mild cardiomegaly, no pneumonia or congestive heart failure. A single lead pacemaker with improper placement. Electrocardiogram, as mentioned above, atrial fibrillation with ventricular rate at 73 beats per minute, borderline T- wave abnormalities in diffuse leads. Echocardiogram done on August 21, during past visit, showed normal LV systolic function with EF of 65% to 70%. LA is severely dilated. RA is severely dilated. Mild aortic valve calcification. Mild mitral annular calcification, moderate MR, severe TR. Mild pulmonary hypertension with RVSP estimated at 43 mmHg. Trace pulmonic valve regurgitation. IVC was dilated. Trivial anterior pericardial effusion. ASSESSMENT AND PLAN: 1. Pacemaker pocket hematoma: Patient with recent single lead VVI pacemaker implanted, known history of chronic atrial fibrillation, was started on Xarelto soon afterwards. Per patient's daughter, had been doing fine until large hematoma developed at 4:00 p.m. yesterday. Site is painful to touch, palm- sized hematoma noted at incision. At this time, I have asked Dr. Ingram, Dr. Gonzalez' s partner, electrophysiology service, to evaluate patient. I have also discussed this with Dr. Garcia of General Surgery, and potentially the patient may need to be taken back to the cardiac catheterization lab and have evacuation of hematoma. If conservative measures, we will need to monitor for anemia, her hemoglobin and hematocrit have mildly dropped in the last 24 hours. Currently, her Xarelto is on hold. 2. Symptomatic bradycardia: Patient with recent pacemaker implantation. Noted that she did have heart rate recorded at 47 beats per minute, I have called the [employer] pacemaker rep and had them interrogate her device. Per rep , the device is functioning within normal limits. It is set for an active rate at 60 beats per minute, but when she was resting it dropped all down to the 50s. 3. Permanent atrial fibrillation: The patient is well rate controlled without any AV tabitha agents. Due to large hematoma pocket, she is currently off Xarelto. At some point, pending on further treatment, we will have to determine how long we will have to hold her off anticoagulation. She does have a CHADS-VASc score of at least 3 for sex and age. Thank you for this consultation. Further recommendations will come after Dr. Ingram has evaluated. /[id number]/MODL MTDD
[2016-08-27] MEDS: ESCITALOPRAM OXALATE 10 MG TAB PO SCH (12:26)
--- NOTE | 2016-08-27 13:25 | HOSPPROG ---
Hospitalist Progress Note Assessment/Plan: 86 y/o female new to my care today presenting with #pacemaker pocket hematoma without clinical signs of cellulitis #improving acute encephalopathy #depression Plan -case discussed with cardiology who are recommending that we continue to hold anticoagulation and continue observation -dc vanco and monitor off of antibiotics continue inpatient care Subjective: continues to have pain over pacemaker site. denies fever or chills. denies chest pain or sob Objective: Vital Signs Temp Pulse Resp BP Pulse Ox 36.8 C 79 17 135/88 H 93 08/27/16 11:09 08/27/16 11:09 08/27/16 11:09 08/27/16 11:09 08/27/16 11:09 Laboratory Results 08/27/16 10:14 08/27/16 10:14 08/26/16 08/27/16 08/28/16 05:59 05:59 05:59 Intake Total 1300 120 Output Total 1050 450 Balance 250 -330 - Physical Exam Constitutional: no apparent distress, appears nourished, not in pain Cardiovascular: regular rate and rhythym, no murmur, rub, or gallop Respiratory: no respiratory distress, no rales or rhonchi, clear to auscultation Gastrointestinal: normoactive bowel sounds, soft, non-tender abdomen, no palpable masses Skin: other (swelling over left chest ppm site. wound closed. no erythema. 1 nonhemorrhagic fluid filled bullae) Neurologic: AAOx3 ICD10 Worksheet Patient Problems: Problems Problem Status Onset Symptomatic bradycardia Acute Atrial fibrillation Acute Cellulitis Acute Hematoma Acute Altered mental status Acute
[2016-08-27] MEDS: oxyCODONE IR 5 MG TAB PO PRN ×2 (15:48→22:02)
[2016-08-28] MEDS: oxyCODONE IR 5 MG TAB PO PRN ×2 (04:01→17:44)
[2016-08-28] MEDS: ACETAMINOPHEN 500 MG TAB PO SCH ×3 (05:18→21:06)
[2016-08-28 06:11] LABS: HEMATOCRIT 34.2 % (38.0-47.0); HEMOGLOBIN 10.7 g/dL (12.6-16.3); MEAN CELL HEMOGLOBIN 30.5 pg (27.9-34.1); MEAN CELL HEMOGLOBIN CONCENTR. 31.3 g/dL (32.4-36.7); MEAN CELL VOLUME 97.4 fL (81.5-99.8); RED BLOOD CELL COUNT 3.51 10^6/uL (4.18-5.33)
[2016-08-28 06:38] LABS: ANION GAP 9 mEq/L (8-16); CALCIUM 8.9 mg/dL (8.5-10.4); CARBON DIOXIDE 23 mEq/l (22-31); CHLORIDE 108 mEq/L (97-110); CREATININE 0.6 mg/dL (0.6-1.0); GLOMERULAR FILTRATION RATE > 60; GLUCOSE 75 mg/dL (70-100); POTASSIUM 4.4 mEq/L (3.5-5.2); SODIUM 140 mEq/L (134-144)
[2016-08-28] MEDS: OMEGA-3 FATTY ACIDS 1,000 MG CAP PO SCH (09:20)
[2016-08-28] MEDS: ESCITALOPRAM OXALATE 10 MG TAB PO SCH (09:20)
[2016-08-28] MEDS: MULTIVITAMINS 1 EACH TAB PO SCH (09:20)
--- NOTE | 2016-08-28 11:27 | PDCARPN ---
Cardiology Progress Note Chief Complaint: Patient reporting pain at pacemaker implantation site. Assessment/Plan: Assessment: 78-year-old female with significant history that includes permanent atrial fibrillation, mild dimension, symptomatic bradycardia with noted pauses up to 2.8 seconds, with recent single lead ppm implantation on August 23. Patient patient had been discharged from the hospital, and doing well. Starting back on anticoagulation of Xarelto. Patient's daughter reports on 12/18/2016, at 4:00 p.m., was noted that pacemaker incision site appeared to be swelling, and tender to touch. Return back to the hospital. Chest x-ray done, showing no acute cardiopulmonary process. No pneumothorax, PPM in proper placement. Device check done by pacemaker rep on 08/27/2016 showing functioning within normal limits. Today, hematoma size appears to be unchanged. Tender to touch. No signs of infection at pacer pocket site. Incision intact with Steri-Strips with no signs of dehiscence. H&H mildly down today at 10.7 and 34.2. Patient continues to be AFib on monitor with no malignant arrhythmias noted. Occasional ventricular paced beat. Normal electrolyte renal function. Plan: Pacemaker pocket hematoma: Discussed with Dr. Ingram, will plan on making patient NPO after midnight, with potential plan of patient returning to cardiac catheterization lab for hematoma evacuation tomorrow, after evaluation with Dr. Gonzalez. Continue to hold Xarelto. Continue pain management. Permanent atrial fibrillation: Well rate controlled on no AV tabitha agents. Xarelto on hold due to pacemaker pocket hematoma. Risk of thrombotic event discussed patient's daughter yesterday with Dr. Ingram. Symptomatic bradycardia: Ppm implantation, no significant pauses noted. Patient denies of any lightheadedness. 08/28/16 11:24 Subjective: Patient pleasantly confused, reports continuation of pain with palpitation of pacemaker hematoma. Denies of any shortness of breath, lightheadedness, palpitations. Reviewed/Discussed With: other (Dr Ingram) Objective: Vital Signs (8 Hrs) Temp Pulse Resp BP Pulse Ox 08/28/16 08:00 36.8 C 81 17 127/83 H 95 08/28/16 04:28 36.2 C 86 136/93 H 90 L 08/28/16 03:59 79 90 L Intake/Output (24 Hrs) 08/27/16 08/28/16 08/29/16 05:59 05:59 05:59 Intake Total 1300 1400 Output Total 1050 1250 250 Balance 250 150 -250 Intake: Oral (ml) 80 1400 IV Infused (ml) 1220 Ns 1,000 ml @ 125 mls/hr 670 IV CONT MEL Rx#: [id number] Vancomycin HCl/Normal 250 Saline 250 ml @ 250 mls/ hr IV Q12H MEL Rx#: [id number] Output: Urine (ml) 1050 1250 250 Bedside Commode 1050 1250 250 Other: Weight 55.2 kg Intake Quantity npo Sufficient Number of Voids 1 Bedside Commode 1 1 1 Number of Stools Bedside Commode 1 1 Result Diagrams: 08/28/16 04:48 08/28/16 04:48 - Physical Exam Constitutional: WDWN, no apparent distress Ears, Nose, Mouth, Throat: moist mucous membranes Cardiovascular: irregularly irregular (AFib on monitor with occasional ventricular paced beat), pulses symmetric bilat, No jugular vein distention, No carotid bruit Peripheral Pulses: 1+: dorsalis-pedis (R), dorsalis-pedis (L), 2+: carotid (R), carotid (L) Respiratory: other (Lungs are clear, but diminished in bases bilateral, no rhonchi, rales, or wheezing noted.) Gastrointestinal: normoactive bowel sounds Skin: warm, no edema, other (Palm size hematoma at pacemaker site with ecchymosis. No redness, swelling, or drainage noted. Incision intact with Steri -Strips.) Psychiatric: cooperative, interactive, following commands, not anxious ICD10 Worksheet Patient Problems: Problems Problem Status Onset Symptomatic bradycardia Acute Atrial fibrillation Acute Cellulitis Acute Hematoma Acute Altered mental status Acute
[2016-08-28] MEDS: PHOSPSERIN PO SCH (13:29)
[2016-08-28] MEDS: DHA PO SCH (13:29)
[2016-08-28] MEDS: EPA PO SCH (13:29)
[2016-08-28] MEDS: OMEGA PO SCH (13:29)
--- NOTE | 2016-08-28 13:46 | HOSPPROG ---
Hospitalist Progress Note Assessment/Plan: 86 y/o female presenting with #pacemaker pocket hematoma without clinical signs of cellulitis #afib #improving acute encephalopathy #depression Plan -possible hematoma evacuation tomorrow -continue to monitor off antibiotics -hold anticoagulation continue inpatient care Subjective: continues to have pain over right chest. does not remember what happened yesterday. no fever or chills Objective: Vital Signs Temp Pulse Resp BP Pulse Ox 36.8 C 71 18 113/77 95 08/28/16 12:00 08/28/16 12:00 08/28/16 12:00 08/28/16 12:00 08/28/16 12:00 Laboratory Results 08/28/16 04:48 08/28/16 04:48 08/27/16 08/28/16 08/29/16 05:59 05:59 05:59 Intake Total 1300 1400 Output Total 1050 1250 250 Balance 250 150 -250 - Physical Exam Constitutional: no apparent distress, appears nourished, not in pain Ears, Nose, Mouth, Throat: moist mucous membranes, hearing normal, ears appear normal, no oral mucosal ulcers Cardiovascular: irregularly irregular, No JVD, No edema Respiratory: no respiratory distress, no rales or rhonchi, clear to auscultation Gastrointestinal: other ( ecchymosis over left chest with persistent bulla appears to contain clear fluid incision is closed without any obvious signs of infection) ICD10 Worksheet Patient Problems: Problems Problem Status Onset Symptomatic bradycardia Acute Atrial fibrillation Acute Cellulitis Acute Hematoma Acute Altered mental status Acute
[2016-08-29] MEDS: ACETAMINOPHEN 500 MG TAB PO SCH ×3 (07:04→20:36)
[2016-08-29] MEDS: MULTIVITAMINS 1 EACH TAB PO SCH (10:01)
[2016-08-29] MEDS: PHOSPSERIN PO SCH (10:01)
[2016-08-29] MEDS: OMEGA PO SCH (10:01)
[2016-08-29] MEDS: DHA PO SCH (10:01)
[2016-08-29] MEDS: OMEGA-3 FATTY ACIDS 1,000 MG CAP PO SCH (10:01)
[2016-08-29] MEDS: ESCITALOPRAM OXALATE 10 MG TAB PO SCH (10:01)
[2016-08-29] MEDS: EPA PO SCH (10:01)
[2016-08-29 10:17] LABS: % IMMATURE GRANULYOCYTES 0.3 % (0.0-1.1); ABSOLUTE IMMATURE GRANULOCYTES 0.02 10^3/uL (0.00-0.10); ADD DIFF? NO; ADD MORPH? NO; ADD SCAN? NO; ATYPICAL LYMPHOCYTE FLAG 10 (0-99); FRAGMENT RBC FLAG 0 (0-99); HEMATOCRIT 34.7 % (38.0-47.0); HEMOGLOBIN 11.3 g/dL (12.6-16.3); LEFT SHIFT FLG 0 (0-99); LIPEMIA HEMOLYSIS FLAG 80 (0-99); MEAN CELL HEMOGLOBIN 31.3 pg (27.9-34.1); MEAN CELL HEMOGLOBIN CONCENTR. 32.6 g/dL (32.4-36.7); MEAN CELL VOLUME 96.1 fL (81.5-99.8); MEAN PLATELET VOLUME 9.1 fL (8.7-11.7); PLATELET CLUMPS FLAG 10 (0-99); PLATELET COUNT 236 10^3/uL (150-400); RED BLOOD CELL COUNT 3.61 10^6/uL (4.18-5.33); RED CELL DISTRIBUTION WIDTH 13.8 % (11.5-15.2)
[2016-08-29 10:52] LABS: ANION GAP 9 mEq/L (8-16); CALCIUM 9.2 mg/dL (8.5-10.4); CARBON DIOXIDE 24 mEq/l (22-31); CHLORIDE 105 mEq/L (97-110); CREATININE 0.6 mg/dL (0.6-1.0); GLOMERULAR FILTRATION RATE > 60; GLUCOSE 86 mg/dL (70-100); POTASSIUM 4.3 mEq/L (3.5-5.2); SODIUM 138 mEq/L (134-144)
--- NOTE | 2016-08-29 15:01 | PDCARPN ---
Cardiology Progress Note Chief Complaint: Patient reports tenderness at pacemaker insertion site. Assessment/Plan: Assessment: 78-year-old female with significant history that includes permanent atrial fibrillation, mild dementia, symptomatic bradycardia with noted pauses up to 2.8 seconds, with recent single lead ppm implantation on August 23. Patient patient had been discharged from the hospital, and doing well. Starting back on anticoagulation of Xarelto. Patient's daughter reports on 12/18/2016, at 4:00 p.m., was noted that pacemaker incision site appeared to be swelling, and tender to touch. Return back to the hospital. Chest x-ray done, showing no acute cardiopulmonary process. No pneumothorax, PPM in proper placement. Device check done by pacemaker rep on 08/27/2016 showing functioning within normal limits. Today patient seems more alert. Improvement in her H&H (11.3 and 34.7). Hematoma appears to be decrease in size today. Severely ecchymotic on left upper anterior chest. Patient was seen by Dr. Gonzalez, who has discussed with patient's daughter. For time being, no plan for her to return to sleep lab technologist for hematoma evacuation. Patient has remained in atrial fibrillation with occasional ventricular paced beat. Denies of any chest pressure or pain. Denies of shortness of breath. Pacemaker incision intact with Steri-Strips with no signs of infection. Plan: 1. Pacemaker pocket hematoma: Patient examined by Dr. Gonzalez, feels improvement in hematoma. Discussed with patient's daughter, as of this time, we will not be taking back to the sleep lab technologist for hematoma evacuation. Continue with pain management. 2. Permanent atrial fibrillation: Well rate controlled on no AV tabitha agents. Patient's Xarelto has been discontinued. Risk of anticoagulation not being on anticoagulation has been explained to the daughter by both Dr. Ingram and Dr. Gonzalez , plan at this time, is to start her on low-dose enteric-coated aspirin at 81 mg p.o. q.day. Will re-evaluate as an outpatient if needs to restart on anticoagulation in the future 3. Symptomatic bradycardia: Patient has [employer] single lead VVI pacemaker, device check done on admission showed functioning within normal limits. No significant pauses or arrhythmias noted. Occasional ventricular paced beat noted. Have discussed with Dr. Dasilva and Dr. Gonzalez, from a cardiac standpoint, patient is fine [facility]. I have set up follow-up appointments for a device and wound check in our office next week. And a follow -up appointment with Dr. Gonzalez in 2 weeks. 08/29/16 14:54 Subjective: Patient reports tenderness at pacemaker insertion site, denies of any chest pressure, pain, shortness of breath, lightheadedness, palpitations, near- syncope or syncopal events. Reviewed/Discussed With: hospitalist (Dr Dasilva), other (Dr Gonzalez) Objective: Vital Signs (8 Hrs) Temp Pulse Resp BP Pulse Ox 08/29/16 11:25 36.6 C 73 18 140/91 H 95 08/29/16 07:52 36.8 C 73 16 123/82 H 95 Intake/Output (24 Hrs) 08/28/16 08/29/16 08/30/16 05:59 05:59 05:59 Intake Total 1400 250 Output Total 1250 950 200 Balance 150 -700 -200 Intake: Oral (ml) 1400 250 Output: Urine (ml) 1250 950 200 Bedside Commode 1250 950 200 Other: Number of Voids Bedside Commode 1 1 1 Number of Stools Bedside Commode 1 1 1 Result Diagrams: 08/29/16 10:12 08/29/16 10:12 - Physical Exam Constitutional: WDWN, no apparent distress Ears, Nose, Mouth, Throat: moist mucous membranes Cardiovascular: no murmurs, no rubs, no gallops, irregularly irregular (Atrial fibrillation with occasional ventricular paced beat.), pulses symmetric bilat, No jugular vein distention Peripheral Pulses: 1+: dorsalis-pedis (R), dorsalis-pedis (L) Respiratory: other (Lungs are clear, but diminished in bases bilateral, no rhonchi, rales, or wheezing noted. No accessary muscle use, no intercostal muscle retraction noted.) Gastrointestinal: normoactive bowel sounds Skin: warm, no edema, other (Pacemaker incision, left anterior upper chest, intact with Steri-Strips. Half palm size hematoma noted at incision site. Ecchymoses down anterior chest. No signs of infection.) Neurologic: AAOx3 Psychiatric: cooperative, interactive, following commands, not anxious ICD10 Worksheet Patient Problems: Problems Problem Status Onset Symptomatic bradycardia Acute Atrial fibrillation Acute Cellulitis Acute Hematoma Acute Altered mental status Acute
--- NOTE | 2016-08-29 16:06 | HOSPPROG ---
Hospitalist Progress Note Assessment/Plan: 86 y/o female presenting with #pacemaker pocket hematoma without clinical signs of cellulitis #afib #acute encephalopathy/delirium (slow to improve) #depression #weakness and deconditioning Plan: -I discussed the case with Dr. Gonzalez who is not recommending hematoma evacuation at this time -continue to monitor off antibiotics -hold anticoagulation -will continue inpatient care given that she is still confused and weak continue inpatient care Subjective: pain controlled. reported to be unsteady by nursing staff Objective: Vital Signs Temp Pulse Resp BP Pulse Ox 36.7 C 71 20 115/66 96 08/29/16 15:23 08/29/16 15:23 08/29/16 15:23 08/29/16 15:23 08/29/16 15:23 Laboratory Results 08/29/16 10:12 08/29/16 10:12 08/28/16 08/29/16 08/30/16 05:59 05:59 05:59 Intake Total 1400 250 Output Total 1250 950 200 Balance 150 -700 -200 - Physical Exam Constitutional: no apparent distress, appears nourished, not in pain Cardiovascular: regular rate and rhythym, no murmur, rub, or gallop Respiratory: no respiratory distress, no rales or rhonchi, clear to auscultation Gastrointestinal: normoactive bowel sounds, soft, non-tender abdomen, no palpable masses Skin: other (discoloration and ecchymosis over ppm site without erythema or obvious signs of infection) ICD10 Worksheet Patient Problems: Problems Problem Status Onset Symptomatic bradycardia Acute Atrial fibrillation Acute Cellulitis Acute Hematoma Acute Altered mental status Acute
[2016-08-30] MEDS: oxyCODONE IR 5 MG TAB PO PRN (01:51)
[2016-08-30 04:36] LABS: % IMMATURE GRANULYOCYTES 0.3 % (0.0-1.1); ABSOLUTE IMMATURE GRANULOCYTES 0.02 10^3/uL (0.00-0.10); ADD DIFF? NO; ADD MORPH? NO; ADD SCAN? NO; ATYPICAL LYMPHOCYTE FLAG 20 (0-99); FRAGMENT RBC FLAG 0 (0-99); HEMATOCRIT 33.4 % (38.0-47.0); HEMOGLOBIN 11.1 g/dL (12.6-16.3); LEFT SHIFT FLG 0 (0-99); LIPEMIA HEMOLYSIS FLAG 80 (0-99); MEAN CELL HEMOGLOBIN 31.1 pg (27.9-34.1); MEAN CELL HEMOGLOBIN CONCENTR. 33.2 g/dL (32.4-36.7); MEAN CELL VOLUME 93.6 fL (81.5-99.8); PLATELET CLUMPS FLAG 0 (0-99); PLATELET COUNT 245 10^3/uL (150-400); RED BLOOD CELL COUNT 3.57 10^6/uL (4.18-5.33); RED CELL DISTRIBUTION WIDTH 13.6 % (11.5-15.2)
[2016-08-30 05:15] LABS: ANION GAP 10 mEq/L (8-16); CALCIUM 9.1 mg/dL (8.5-10.4); CARBON DIOXIDE 25 mEq/l (22-31); CHLORIDE 105 mEq/L (97-110); CREATININE 0.7 mg/dL (0.6-1.0); GLOMERULAR FILTRATION RATE > 60; GLUCOSE 87 mg/dL (70-100); POTASSIUM 4.3 mEq/L (3.5-5.2); SODIUM 140 mEq/L (134-144)
[2016-08-30] MEDS: ACETAMINOPHEN 500 MG TAB PO SCH (08:51)
[2016-08-30] MEDS: ESCITALOPRAM OXALATE 10 MG TAB PO SCH (08:51)
[2016-08-30] MEDS: MULTIVITAMINS 1 EACH TAB PO SCH (08:54)
[2016-08-30] MEDS: OMEGA-3 FATTY ACIDS 1,000 MG CAP PO SCH (08:55)
[2016-08-30] MEDS ORDERED: ASPIRIN EC 81 MG TAB PO SCH (09:00)
--- NOTE | 2016-08-30 10:07 | PDIAF ---
- Diagnosis Diagnosis: pacemaker pocket hematoma Code Status: Do Not Resuscitate - Medication Management Discharge Medications: Medications to Continue on Transfer Acetaminophen [Tylenol ES 500 mg (*)] 500 mg PO BID 08/20/16 [Last Taken ] Acetaminophen [Tylenol ES 500 mg (*)] 500 mg PO Q6 PRN 08/20/16 [Last Taken 17:00] Escitalopram Oxalate [Lexapro 10 MG] 10 mg PO DAILY 08/20/16 [Last Taken ] Multivitamins [Multivitamin (*)] 1 each PO DAILY 08/20/16 [Last Taken 08/26/16] [place]-3 Fatty Acids [Fish Oil 1000 mg (*)] 1,000 mg PO DAILY 08/20/16 [Last Taken 08/26/16] Phospserin/[place]-3/Dha/Epa [Vayacog Capsules] 1 each PO DAILY 08/20/16 [Last Taken 08/26/16] Acetaminophen [Tylenol ES 500 mg (*)] 1,000 mg PO Q8 #0 tab 08/30/16 [Last Taken Unknown] Aspirin EC [Aspirin EC 81 mg (*)] 81 mg PO DAILY #0 tab 08/30/16 [Last Taken Unknown] oxyCODONE IR [Oxycodone Ir (*)] 2.5 mg PO Q3HRS PRN #0 tab 08/30/16 [Last Taken Unknown] Discharge Medications: Refer to the Discharge Home Medication list for PRN reason. - Orders Diet Recommendation: no restrictions on diet Diet Texture: Regular Texture Diet, Thin Liquids, Meds Whole w/Liquids - Follow Up Care Current Providers and Referrals: EZIO RUSH [Other] - As per Instructions Yuniel Gonzalez MD [Medical Doctor] - (Wound and device check for September 05 at 1:15 p.m. Follow-up appointment with Dr. Gonzalez September 14 at 11:30 a.m..)
--- NOTE | 2016-08-30 10:45 | GDS ---
DISCHARGE DIAGNOSES: 1. Pacemaker pocket hematoma. 2. Acute encephalopathy/delirium. 3. Atrial fibrillation. 4. Depression. 5. Weakness and deconditioning. [facility]: [facility]. HOSPITAL COURSE AND STAY: 1. Pacemaker pocket hematoma: The patient presented to the hospital after she was noted to have fa irly rapid swelling over her pacemaker pocket in the setting of being on Xarelto. The patient was a dmitted to the telemetry unit where H and H were noted to be stable. Surgery, as well as Electrophy siology and cardiology were consulted, who did not think she needed hematoma evacuation. Decision w as made to have the patient discharged from the hospital to a alf facility off Xarelto a nd on a low-dose enteric aspirin. 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 2. Acute encephalopathy/delirium: The patient had waxing and waning confusion throughout this hosp ital stay. Some of this was likely due to severe pain over the pacemaker site. She was treated wit h oxycodone with some improvement throughout her stay. On the day of discharge the patient's mentation appears to be improving. I spoke to her daughter, Namrata smart, who thought it was reasonable for her to discharge to [facility]. PHYSICAL EXAM: VITAL SIGNS: On day of discharge, blood pressure 136/81, pulse is 70, respiratory r ate 18, O2 saturation 94% on room air. Temperature afebrile. LEFT CHEST: There continues to be ec chymosis over the pacemaker site without any obvious signs of cellulitis or infection. DISCHARGE MEDICATIONS: Please refer to discharge medication reconciliation in [facility]. DISCHARGE INSTRUCTIONS: The patient will be discharged from the hospital. She plans to go to [facility] for rehab. [facility] as [facility]. Copy requested to: Dr. Carlos Bah [facility] /[id number]/MODL
[2016-08-30] MEDS: DHA PO SCH (11:28)
[2016-08-30] MEDS: OMEGA PO SCH (11:28)
[2016-08-30] MEDS: EPA PO SCH (11:28)
[2016-08-30] MEDS: PHOSPSERIN PO SCH (11:28)
[2016-08-30 11:59] VITALS: BP 125/72; PULSE 64; RESP 16; TEMP 97.9; O2SAT 95
== END 2016-08-30 13:05 | DRG 919 ==
LOC: F2W 21:30
PROVIDERS: ADMIT Internal Medicine; ATTEND Family Medicine
DX: L76.32 Postprocedural hematoma of skin and subcutaneous tissue following other procedure (principal); G93.40 Encephalopathy, unspecified; L03.313 Cellulitis of chest wall; R00.1 Bradycardia, unspecified; I48.2 Chronic atrial fibrillation; F03.90 Unspecified dementia, unspecified severity, without behavioral disturbance, psychotic disturbance, mood disturbance, and anxiety; R53.1 Weakness; Z66 Do not resuscitate; Z95.0 Presence of cardiac pacemaker
CPT/HCPCS: 92610-GN; 96374; 97116-GP; 97162-GP; 97163-GP; 97165-GO; 97530-GP; 97535-GO; G8978-GP-CK; G8979-GP-CI; G8987-GO-CL; G8988-GO-CI; G8988-GO-CJ; G8996-GN-CH; G8997-GN-CH; G8998-GN-CH; J0690; J3370